=== PATIENT | female | born 1965 | race Caucasian/White ===

== ENCOUNTER 2017-11-17 12:44 | Inpatient (IN) | payer MEDICARE ==
[~2017-11-17] VITALS: Ht 162.6 cm; Wt 92.5 kg
[2017-11-17] MEDS ORDERED: RT-ALBUTEROL/IPRATROPIUM 3 ML (DUONEB) VIAL INH ONE (13:00)
[2017-11-17 13:18] LABS: ABG BASE EXCESS -0.4 MMOL/L (-2.5-2.5); ABG OXYGEN SATURATION 93 % (94-100); ABG PCO2 39 MMHG (35-45); ABG PO2 69 MMHG (79-93)
[2017-11-17 13:20] LABS: ALLENS TEST YES-POS; INSPIRED O2 3L; PATIENT TEMP 98.4; VENTILATOR NO
--- NOTE | 2017-11-17 13:29 | ED Respiratory ---
General Chief Complaint: Respiratory Problems Stated Complaint: SOB Nursing Triage Note: PT REPORTS HAVING SOA STARTING A FEW DAYS AGO; WENT TO SEE DR MO AND SHE TOLD HER TO GO STRAIGHT TO THE HOSPITAL. PT REPORTS HAVING LE SWELLING ALSO Source: patient Exam Limitations: no limitations History of Present Illness Date Seen by Provider: Nov 17, 2017 Time Seen by Provider: 13:26 Initial Comments to ER by private vehicle from [facility]. She was seen by Dr. Rita Mo today in the clinic with shortness of breath. Decided that she had COPD exacerbation and needed admitted. She was referred to the emergency room. She received 1 DuoNeb treatment at the clinic as well as 125 mg of Solu- Medrol at the clinic. She's also had some swelling to both lower extremities but mostly the left. She has a history DVT in the right lower extremity. She is not on anticoagulation. She is a former smoker but quit 4 years ago.she also reports chest tightness. Timing/Duration: constant Severity: moderate Associated Symptoms: cough; No fever/chills; shortness of breath Allergies and Home Medications Allergies Coded Allergies: No Known Drug Allergies (Unverified , 11/17/17) Patient Home Medication List Home Medication List Reviewed: Yes Review of Systems Constitutional: see HPI; No chills, No fever EENTM: see HPI Respiratory: no symptoms reported Cardiovascular: no symptoms reported Genitourinary: no symptoms reported Musculoskeletal: no symptoms reported Skin: no symptoms reported Psychiatric/Neurological: No Symptoms Reported Hematologic/Lymphatic: No Symptoms Reported Immunological/Allergic: no symptoms reported Past Esxvoka-Rjfzvq-Hvptvc Hx Patient Social History Alcohol Use: Denies Use Recreational Drug Use: No Smoking Status: Former Smoker Type Used: Cigarettes Former Smoker, Quit: Feb 04, 2014 Recent Foreign Travel: No Contact w/Someone Who Travel: No Recent Infectious Disease Expo: No Recent Hopitalizations: No Immunizations Up To Date Date of Pneumonia Vaccine: Dec 07, 2016 Seasonal Allergies Seasonal Allergies: Yes Past Medical History Surgeries: Yes (R HIP REPLACEMENT, R KNEE SCOPE) Orthopedic, Tubal Ligation Respiratory: Yes Pneumonia, COPD Currently Using CPAP: No Currently Using BIPAP: No Cardiac: Yes Deep Vein Thrombosis, Hypertension Neurological: Yes (HX CLUSTER HEADACHES) : No Genitourinary: No Gastrointestinal: Yes Gastroesophageal Reflux Musculoskeletal: Yes Degenerate Disk Disease, Arthritis, Chronic Back Pain Endocrine: Yes Hypothyroidsim HEENT: No Cancer: Yes Cervical What Type of Treatment Did You: Radiation Psychosocial: Yes Depression Integumentary: No Blood Disorders: No Physical Exam Vital Signs - First Documented 11/17/17 11/17/17 13:01 13:08 Temp 98.4 Pulse 88 Resp 24 B/P (MAP) 198/106 (136) Pulse Ox 92 O2 Delivery Nasal Cannula O2 Flow Rate 3.00 Capillary Refill : Less Than 3 Seconds Height: 5'4.00" Weight: 200lbs. oz. [id number]; BMI Method:Stated General Appearance: WD/WN, mild distress, other (O2 84% on room air) Eyes: Bilateral Eye Normal Inspection, Bilateral Eye PERRL, Bilateral Eye EOMI HEENT: PERRL/EOMI, normal ENT inspection Neck: non-tender, full range of motion Respiratory: normal breath sounds, no respiratory distress, no accessory muscle use, other (good air movement, no wheezing) Gastrointestinal: normal bowel sounds, non tender, soft Extremities: other (2+ pitting edema BLE) Neurologic/Psychiatric: alert, normal mood/affect, oriented x 3 Skin: normal color, warm/dry Focused Exam Lactate Level 11/17/17 13:27: Lactic Acid Level 1.02 Lactic Acid Level Laboratory Tests Test 11/17/17 13:27 Lactic Acid Level 1.02 MMOL/L (0.50-2.00) Progress/Results/Core Measures Suspected Sepsis Recent Fever Within 48 Hours: No Infection Criteria Present: None New/Unexplained Altered Menta: No Sepsis Screen: No Definite Risk SIRS Temperature:98.4 Pulse: 88 Respiratory Rate: 24 Laboratory Tests 11/17/17 13:27: White Blood Count 10.0 Blood Pressure 198 /106 Mean: 136 11/17/17 13:27: Lactic Acid Level 1.02 Laboratory Tests 11/17/17 13:27: Creatinine 1.81H, Platelet Count 252, Total Bilirubin 0.4 Results/Orders Lab Results Laboratory Tests Test 11/17/17 13:11 11/17/17 13:27 Range/Units Blood Gas Puncture Site RT RAD Blood Gas Patient Temperature 98.4 Arterial Blood pH 7.40 7.37-7.43 Arterial Blood Partial Pressure CO2 39 35-45 MMHG Arterial Blood Partial Pressure O2 69 L 79-93 MMHG Arterial Blood HCO3 24 23-27 MMOL/L Arterial Blood Total CO2 25.0 21.0-31.0 MMOL/L Arterial Blood Oxygen Saturation 93 L 94-100 % Arterial Blood Base Excess -0.4 -2.5-2.5 MMOL/L Jerod Test YES-POS Blood Gas Ventilator Setting NO Blood Gas Inspired Oxygen 3L White Blood Count 10.0 4.3-11.0 10^3/uL Red Blood Count 3.61 L 4.35-5.85 10^6/uL Hemoglobin 10.5 L 11.5-16.0 G/DL Hematocrit 33 L 35-52 % Mean Corpuscular Volume 90 80-99 FL Mean Corpuscular Hemoglobin 29 25-34 PG Mean Corpuscular Hemoglobin Concent 32 32-36 G/DL Red Cell Distribution Width 15.7 H 10.0-14.5 % Platelet Count 252 130-400 10^3/uL Mean Platelet Volume 9.6 7.4-10.4 FL Neutrophils (%) (Auto) 89 H 42-75 % Lymphocytes (%) (Auto) 7 L 12-44 % Monocytes (%) (Auto) 2 0-12 % Eosinophils (%) (Auto) 2 0-10 % Basophils (%) (Auto) 0 0-10 % Neutrophils # (Auto) 8.9 H 1.8-7.8 X 10^3 Lymphocytes # (Auto) 0.7 L 1.0-4.0 X 10^3 Monocytes # (Auto) 0.2 0.0-1.0 X 10^3 Eosinophils # (Auto) 0.2 0.0-0.3 10^3/uL Basophils # (Auto) 0.0 0.0-0.1 10^3/uL Neutrophils % (Manual) 87 % Lymphocytes % (Manual) 7 % Monocytes % (Manual) 1 % Eosinophils % (Manual) 3 % Band Neutrophils 2 % Blood Morphology Comment NORMAL Sodium Level 138 135-145 MMOL/L Potassium Level 5.0 3.6-5.0 MMOL/L Chloride Level 105 98-107 MMOL/L Carbon Dioxide Level 24 21-32 MMOL/L Anion Gap 9 5-14 MMOL/L Blood Urea Nitrogen 23 H 7-18 MG/DL Creatinine 1.81 H 0.60-1.30 MG/DL Estimat Glomerular Filtration Rate 29 BUN/Creatinine Ratio 13 Glucose Level 116 H 70-105 MG/DL Lactic Acid Level 1.02 0.50-2.00 MMOL/L Calcium Level 9.4 8.5-10.1 MG/DL Total Bilirubin 0.4 0.1-1.0 MG/DL Aspartate Amino Transf (AST/SGOT) 19 5-34 U/L Alanine Aminotransferase (ALT/SGPT) 17 0-55 U/L Alkaline Phosphatase 103 40-136 U/L Troponin I < 0.30 <0.30 NG/ML B-Type Natriuretic Peptide 199.0 H <100.0 PG/ML Total Protein 7.2 6.4-8.2 GM/DL Albumin 3.8 3.2-4.5 GM/DL My Orders Orders - KHURRAM BRAUN APRN Cbc And Manual Diff (11/17/17 12:53) Comprehensive Metabolic Panel (11/17/17 12:53) Troponin I (11/17/17 12:53) BNP (11/17/17 12:53) Chest 1 View, Ap/Pa Only (11/17/17 12:53) Oxygen-Administer 07,19 (11/17/17 12:53) Albuterol/Ipra Inhalation Soln (Duoneb I (11/17/17 13:00) Svn Small Volume Nebulizer (11/17/17 12:53) Blood Culture (11/17/17 12:53) Lactic Acid Analyzer (11/17/17 12:53) Arterial Blood Gas (11/17/17 13:08) Us Venous Lower Ext Arnaud (11/17/17 13:32) Ekg Tracing (11/17/17 13:33) Metoprolol Tartrate Injection (Lopressor (11/17/17 13:45) Medications Given in ED Current Medications Medications Dose Ordered Sig/Srini Route Start Time Stop Time Status Last Admin Dose Admin Albuterol/ Ipratropium 3 ml ONCE ONCE INH 11/17/17 13:00 11/17/17 13:01 DC 11/17/17 13:01 3 ML Metoprolol Tartrate 5 mg ONCE ONCE IV 11/17/17 13:45 11/17/17 13:46 DC 11/17/17 13:56 5 MG Vital Signs/I&O 11/17/17 11/17/17 13:01 13:08 Temp 98.4 Pulse 88 Resp 24 B/P (MAP) 198/106 (136) Pulse Ox 92 90 O2 Delivery Nasal Cannula Nasal Cannula O2 Flow Rate 3.00 Capillary Refill : Less Than 3 Seconds Blood Pressure Mean: 136 Departure Communication (Admissions) Time/Spoke to Admitting Phy: 14:[address] [place]. We will admit, Solu-Medrol and Zithromax. Ultrasound was negative for DVT of either lower extremity according to management tech. Impression Primary Impression: Hypoxia Additional Impression: COPD exacerbation Disposition: ADMITTED INPATIENT Condition: Stable Admissions Decision to Admit Reason: Admit from ER (General) Decision to Admit/Date: Nov 17, 2017 Time/Decision to Admit Time: 14:32 KHURRAM BRAUN APRN Nov 17, 2017 13:28
[2017-11-17 13:41] LABS: BASOPHILS % (AUTO) 0 % (0-10); EOSINOPHILS # (AUTO) 0.2 10^3/uL (0.0-0.3); EOSINOPHILS % (AUTO) 2 % (0-10); HEMATOCRIT 33 % (35-52); HEMOGLOBIN 10.5 G/DL (11.5-16.0); LYMPHOCYTES # (AUTO) 0.7 X 10^3 (1.0-4.0); LYMPHOCYTES % (AUTO) 7 % (12-44); MEAN CORPUSCULAR HEMOGLOBIN 29 PG (25-34); MEAN CORPUSCULAR HGB CONC 32 G/DL (32-36); MEAN CORPUSCULAR VOLUME 90 FL (80-99); MEAN PLATELET VOLUME 9.6 FL (7.4-10.4); MONOCYTES # (AUTO) 0.2 X 10^3 (0.0-1.0); MONOCYTES % (AUTO) 2 % (0-12); NEUTROPHILS # (AUTO) 8.9 X 10^3 (1.8-7.8); NEUTROPHILS % (AUTO) 89 % (42-75); PLATELET COUNT 252 10^3/uL (130-400); RED BLOOD COUNT 3.61 10^6/uL (4.35-5.85); RED CELL DISTRIBUTION WIDTH 15.7 % (10.0-14.5)
[2017-11-17] MEDS ORDERED: meTOprolol 5 MG/5 ML (LOPRESSOR) VIAL IV ONE (13:45)
[2017-11-17 13:59] LABS: ALANINE AMINOTRANSFERASE 17 U/L (0-55); ALBUMIN 3.8 GM/DL (3.2-4.5); ALKALINE PHOSPHATASE 103 U/L (40-136); BILIRUBIN,TOTAL 0.4 MG/DL (0.1-1.0); BUN/CREATININE RATIO 13; CALCIUM 9.4 MG/DL (8.5-10.1); CARBON DIOXIDE 24 MMOL/L (21-32); CHLORIDE 105 MMOL/L (98-107); CREATININE SERUM 1.81 MG/DL (0.60-1.30); GFR ESTIMATED 29; GLUCOSE 116 MG/DL (70-105); SODIUM 138 MMOL/L (135-145); TOTAL PROTEIN 7.2 GM/DL (6.4-8.2)
[2017-11-17 14:06] LABS: BAND NEUTROPHILS 2 %; EOSINOPHILS % (MANUAL) 3 %; LYMPHOCYTES % (MANUAL) 7 %; MONOCYTES % (MANUAL) 1 %; NEUTROPHILS % (MANUAL) 87 %
[2017-11-17 14:07] LABS: RBC MORPH NORMAL
--- NOTE | 2017-11-17 14:15 | Diagnostic Imaging Report ---
INDICATION: Shortness of breath. COMPARISON: None. FINDINGS: Single upright portable view of the chest is obtained. Heart size is mildly enlarged. There is moderate central venous congestion. There is mild increased interstitial markings throughout both lungs with some vague hazy alveolar opacities at the lung bases. This could be secondary to pneumonia although underlying failure/edema could also have this appearance. No large pleural effusions are suspected. IMPRESSION: Cardiomegaly with some central venous distention and interstitial changes, possibly related to underlying failure/edema. There are some vague alveolar opacities over the lung bases, which may represent edema or superimposed infiltrate. Short-term followup study is suggested. Dictated by: Dictated on workstation # [id number]
--- NOTE | 2017-11-17 15:08 | Diagnostic Imaging Report ---
INDICATION: Shortness breath and edema. PROCEDURE: US LE venous duplex, bilateral. TECHNIQUE: Multiple real-time grayscale images were obtained over the lower extremities in various projections, bilaterally. Additional duplex Doppler and color Doppler images were also obtained. There is no evidence of a right or left lower extremity DVT. Both lower extremities of the deep venous system show normal compressibility with normal response to augmentation and Valsalva. No fluid collection or mass is seen. IMPRESSION: No evidence of right or left lower extremity DVT. Dictated by: Dictated on workstation # [id number]
[2017-11-17] MEDS ORDERED: amLODIPine 5 MG (NORVASC) TAB PO ONE (15:45)
[2017-11-17] MEDS ORDERED: RANI300T4 PO (16:01)
[2017-11-17] MEDS ORDERED: CELE-63 PO (16:01)
[2017-11-17] MEDS ORDERED: MORP1CAP15 PO (16:01)
[2017-11-17] MEDS ORDERED: CARV25TA PO (16:01)
[2017-11-17] MEDS ORDERED: MORP1CAP16 PO (16:01)
[2017-11-17] MEDS ORDERED: ALBU18HF2 INH (16:01)
[2017-11-17] MEDS ORDERED: LEVO100T7 PO (16:01)
[2017-11-17] MEDS ORDERED: GABA-488 PO ×2 (16:01→16:31)
[2017-11-17] MEDS ORDERED: LOSA100T3 PO (16:01)
[2017-11-17] MEDS ORDERED: UMEC1BLS INH (16:01)
[2017-11-17] MEDS ORDERED: ARIP5TAB20 PO (16:01)
[2017-11-17 16:19] VITALS: BP 167/81
[2017-11-17] MEDS ORDERED: IBUP-30 PO (16:31)
[2017-11-17] MEDS ORDERED: MULT-192 PO (16:31)
[2017-11-17] MEDS ORDERED: AZITHROMYCIN 250 MG TAB (ZITHROMAX) PO NR (16:37)
[2017-11-17 17:53] VITALS: BP 198/106
[2017-11-17] MEDS: NS IV 1000 ML 1,000 ML IV SCH (17:56)
[2017-11-17] MEDS: methylPREDNISolone 125 MG (Solu-MEDROL) VIAL IVP SCH (17:56)
[2017-11-17] MEDS ORDERED: NALTREXONE PO SCH (18:30)
[2017-11-17] MEDS ORDERED: MORPHINE SULFATE PO SCH (18:30)
[2017-11-17] MEDS ORDERED: [UNRECOGNIZED DRUG - OTHER] PO SCH (18:30)
[2017-11-17] MEDS ORDERED: RT-ALBUTEROL/IPRATROPIUM 3 ML (DUONEB) VIAL ONE (19:29)
[2017-11-17] MEDS ORDERED: RT-ALBUTEROL/IPRATROPIUM 3 ML (DUONEB) VIAL INH PRN (19:45)
[2017-11-17 19:58] VITALS: BP 161/79
[2017-11-17] MEDS ORDERED: morphine ER 30 MG (MS CONTIN) TAB PO ONE (20:05)
[2017-11-17] MEDS ORDERED: GABAPENTIN 300 MG (NEURONTIN) CAP ONE (20:07)
[2017-11-17] MEDS: morphine ER 30 MG (MS CONTIN) TAB PO SCH (20:10)
[2017-11-17] MEDS: GABAPENTIN 300 MG (NEURONTIN) CAP PO SCH (20:10)
[2017-11-17] MEDS: CARVEDILOL 12.5 MG (COREG) TABLET PO SCH (21:03)
[2017-11-17] MEDS: FAMOTIDINE 20 MG (PEPCID) TABLET PO SCH (21:03)
[2017-11-17] MEDS: ACETAMINOPHEN 500 MG TAB (TYLENOL) PO PRN (22:28)
[2017-11-17] MEDS: RT-ALBUTEROL/IPRATROPIUM 3 ML (DUONEB) VIAL INH SCH (23:00)
[2017-11-18] MEDS: methylPREDNISolone 125 MG (Solu-MEDROL) VIAL IVP SCH ×3 (00:12→12:43)
[2017-11-18 00:26] VITALS: BP 114/67
[2017-11-18] MEDS: RT-ALBUTEROL/IPRATROPIUM 3 ML (DUONEB) VIAL INH SCH ×6 (02:40→21:35)
[2017-11-18 04:24] VITALS: BP 128/68
[2017-11-18] MEDS: NS IV 1000 ML 1,000 ML IV SCH ×2 (05:11→14:06)
[2017-11-18 08:30] VITALS: BP 147/79
[2017-11-18] MEDS: AZITHROMYCIN 250 MG TAB (ZITHROMAX) PO SCH (08:36)
[2017-11-18] MEDS: LOSARTAN 100 MG (COZAAR) TABLET PO SCH (08:36)
[2017-11-18] MEDS: FAMOTIDINE 20 MG (PEPCID) TABLET PO SCH ×2 (08:36→20:30)
[2017-11-18] MEDS: LEVOTHYROXINE 100 MCG (LEVOTHROID) TAB PO SCH (08:36)
[2017-11-18] MEDS: CELECOXIB 100 MG (CeleBREX) CAP PO SCH (08:37)
[2017-11-18] MEDS: ARIPIPRAZOLE 10 MG (ABILIFY) TAB PO SCH (08:37)
[2017-11-18] MEDS: CARVEDILOL 12.5 MG (COREG) TABLET PO SCH ×2 (08:37→20:30)
[2017-11-18] MEDS: morphine ER 30 MG (MS CONTIN) TAB PO SCH ×2 (08:37→20:31)
[2017-11-18 10:17] LABS: HEMOGLOBIN 9.8 G/DL (11.5-16.0); MEAN PLATELET VOLUME 9.7 FL (7.4-10.4); RED BLOOD COUNT 3.37 10^6/uL (4.35-5.85); RED CELL DISTRIBUTION WIDTH 15.7 % (10.0-14.5); WHITE BLOOD COUNT 18.4 10^3/uL (4.3-11.0)
[2017-11-18 10:37] LABS: CREATININE SERUM 1.52 MG/DL (0.60-1.30); POTASSIUM 4.5 MMOL/L (3.6-5.0)
[2017-11-18 11:49] VITALS: BP 131/70
--- NOTE | 2017-11-18 12:28 | History & Physicial (CHS) ---
EVANGELINA ADAMSON MEDICAL STUDENT 11/18/17 12:27pm: HPI History of Present Illness: 52 year old female with Hx of COPD who is not on home O2, Fibromyalgia, degenerative disk disease, HTN, Hypothyroidism here for SOB. Pt states she has had SOB x 5 days that is worse with walking and laying down and is better with sitting up. Pt states she has been using her nebulizer a couple times a day for the last week which has not been helping too much. Pt admits Chest tightness, DAVALOS and states she feels dehydrated. Pt denies abd pain, N/V/D, constipation, dysuria, fever, cough. Source: patient Time Seen by Provider: 07:13 Attending Physician Indio Yu MD PCP Elias Mo MD Consult Date of Admission Nov 17, 2017 at 15:07 Home Medications Home Medications Reviewed patient Home Medication Reconciliation performed by pharmacy medication reconciliations engineering technician and/or nursing. Patients Allergies have been reviewed. Allergies Coded Allergies: Penicillins (Unverified Allergy, Severe, 11/17/17) levofloxacin (Unverified Allergy, Unknown, 11/17/17) nalbuphine (Unverified Allergy, Unknown, 11/17/17) pregabalin (Unverified Allergy, Unknown, 11/17/17) MPU-Phhcpw-Mulzbr Hx Patient Social History Alcohol Use: Denies Use Recreational Drug Use: No Smoking Status: Former Smoker Type Used: Cigarettes Recent Foreign Travel: No Contact w/other who traveled: No Recent Hopitalizations: No Recent Infectious Disease Expo: No Physical Abuse Screen: No Sexual Abuse: No Immunizations Up To Date Date of Pneumonia Vaccine: Dec 07, 2016 Past Medical History COPD Fibromyalgia Degenerative disk disease HTN Hyptothyroid Surgical: Hip replacement Tubal Ligation Knee scope Family Medical History Family History: AIDS G8 BROTHER Alcoholism 19 FATHER Arthritis 19 MOTHER Cardiovascular disease 19 MOTHER Cataracts 19 MOTHER Diabetes mellitus 19 MOTHER Hypercholesterolemia 19 MOTHER Hypertension 19 MOTHER G8 BROTHER Neoplasm MATERNAL GRANDMOTHER (OVARIAN CANCER) MATERNAL AUNT (OVARIAN CANCER) Osteoporosis 19 MOTHER Review of Systems ([facility]) Constitutional: No fever Respiratory: see HPI, short of breath Cardiovascular: see HPI Gastrointestinal: No abdominal pain, No constipation, No diarrhea, No nausea, No vomiting Genitourinary: No dysuria Reviewed Test Results Reviewed Test Results Lab Laboratory Tests Test 11/17/17 13:11 11/17/17 13:27 11/18/17 10:04 Range/Units Blood Gas Puncture Site RT RAD Blood Gas Patient Temperature 98.4 Arterial Blood pH 7.40 7.37-7.43 Arterial Blood Partial Pressure CO2 39 35-45 MMHG Arterial Blood Partial Pressure O2 69 L 79-93 MMHG Arterial Blood HCO3 24 23-27 MMOL/L Arterial Blood Total CO2 25.0 21.0-31.0 MMOL/L Arterial Blood Oxygen Saturation 93 L 94-100 % Arterial Blood Base Excess -0.4 -2.5-2.5 MMOL/L Jerod Test YES-POS Blood Gas Ventilator Setting NO Blood Gas Inspired Oxygen 3L White Blood Count 10.0 18.4 H 4.3-11.0 10^3/uL Red Blood Count 3.61 L 3.37 L 4.35-5.85 10^6/uL Hemoglobin 10.5 L 9.8 L 11.5-16.0 G/DL Hematocrit 33 L 31 L 35-52 % Mean Corpuscular Volume 90 91 80-99 FL Mean Corpuscular Hemoglobin 29 29 25-34 PG Mean Corpuscular Hemoglobin Concent 32 32 32-36 G/DL Red Cell Distribution Width 15.7 H 15.7 H 10.0-14.5 % Platelet Count 252 252 130-400 10^3/uL Mean Platelet Volume 9.6 9.7 7.4-10.4 FL Neutrophils (%) (Auto) 89 H 42-75 % Lymphocytes (%) (Auto) 7 L 12-44 % Monocytes (%) (Auto) 2 0-12 % Eosinophils (%) (Auto) 2 0-10 % Basophils (%) (Auto) 0 0-10 % Neutrophils # (Auto) 8.9 H 1.8-7.8 X 10^3 Lymphocytes # (Auto) 0.7 L 1.0-4.0 X 10^3 Monocytes # (Auto) 0.2 0.0-1.0 X 10^3 Eosinophils # (Auto) 0.2 0.0-0.3 10^3/uL Basophils # (Auto) 0.0 0.0-0.1 10^3/uL Neutrophils % (Manual) 87 % Lymphocytes % (Manual) 7 % Monocytes % (Manual) 1 % Eosinophils % (Manual) 3 % Band Neutrophils 2 % Blood Morphology Comment NORMAL Sodium Level 138 135 135-145 MMOL/L Potassium Level 5.0 4.5 3.6-5.0 MMOL/L Chloride Level 105 106 98-107 MMOL/L Carbon Dioxide Level 24 17 L 21-32 MMOL/L Anion Gap 9 12 5-14 MMOL/L Blood Urea Nitrogen 23 H 26 H 7-18 MG/DL Creatinine 1.81 H 1.52 H 0.60-1.30 MG/DL Estimat Glomerular Filtration Rate 29 36 BUN/Creatinine Ratio 13 17 Glucose Level 116 H 259 H 70-105 MG/DL Lactic Acid Level 1.02 0.50-2.00 MMOL/L Calcium Level 9.4 9.0 8.5-10.1 MG/DL Total Bilirubin 0.4 0.1-1.0 MG/DL Aspartate Amino Transf (AST/SGOT) 19 5-34 U/L Alanine Aminotransferase (ALT/SGPT) 17 0-55 U/L Alkaline Phosphatase 103 40-136 U/L Troponin I < 0.30 <0.30 NG/ML B-Type Natriuretic Peptide 199.0 H <100.0 PG/ML Total Protein 7.2 6.4-8.2 GM/DL Albumin 3.8 3.2-4.5 GM/DL Radiology 11/17/17 US LE: IMPRESSION: No evidence of right or left lower extremity DVT. 11/17/17 CXR: IMPRESSION: Cardiomegaly with some central venous distention and interstitial changes, possibly related to underlying failure/edema. There are some vague alveolar opacities over the lung bases, which may represent edema or superimposed infiltrate. Short-term followup study is suggested. Physical Exam-([facility]) Physical Exam Vital Signs VS - Last 72 Hours, by Label 11/17/17 11/17/17 11/17/17 11/17/17 13:01 13:08 16:15 16:19 Temp 98.4 97.3 Pulse 88 77 80 Resp 24 20 20 B/P (MAP) 198/106 (136) 159/79 167/81 (109) Pulse Ox 92 90 91 98 O2 Delivery Nasal Cannula Nasal Cannula Nasal Cannula Nasal Cannula O2 Flow Rate 3.00 2.00 2.00 11/17/17 11/17/17 11/17/17 11/17/17 17:02 17:53 19:52 19:58 Temp 98.3 Pulse 86 89 Resp 20 B/P (MAP) 161/79 (106) Pulse Ox 86 98 99 O2 Delivery Nasal Cannula Nasal Cannula Nasal Cannula O2 Flow Rate 2.00 3.00 3.00 11/17/17 11/17/17 11/18/17 11/18/17 20:55 23:01 00:26 02:46 Temp 97.7 Pulse 82 Resp 19 B/P (MAP) 114/67 (83) Pulse Ox 98 95 98 O2 Delivery Nasal Cannula Nasal Cannula Nasal Cannula Nasal Cannula O2 Flow Rate 2.00 3.00 3.00 3.00 11/18/17 11/18/17 11/18/17 11/18/17 04:24 06:50 08:00 08:30 Temp 97.8 98.6 Pulse 88 94 Resp 18 20 B/P (MAP) 128/68 (88) 147/79 (101) Pulse Ox 95 96 95 95 O2 Delivery Nasal Cannula Nasal Cannula Nasal Cannula Nasal Cannula O2 Flow Rate 3.00 3.00 1.00 1.00 11/18/17 11/18/17 11/18/17 10:05 11:11 11:49 Temp 99.6 Pulse 96 Resp 22 B/P (MAP) 131/70 (90) Pulse Ox 86 92 86 O2 Delivery Nasal Cannula Nasal Cannula O2 Flow Rate 3.00 1.00 Capillary Refill : Less Than 3 Seconds General Appearance: mild distress Eyes: Bilateral Eye EOMI Neck: non-tender Respiratory: lungs clear, no respiratory distress Cardiovascular: normal peripheral pulses, regular rate, rhythm, other (1+ pedal edema bilateral LE) Peripheral Pulses: 2+ Radial Pulses (R), 2+ Radial Pulses (L) Gastrointestinal: normal bowel sounds, non tender, soft Extremities: normal range of motion Neurologic/Psychiatric: alert, normal mood/affect Skin: normal color Assessment/Plan Assessment/Plan Admission Status: Inpatient Order (span 2 midnights) Reason for Inpatient Admission: COPD Assessment & Plan COPD - Pt is on IV steroids. Will switch pt to PO prednisone. Will continue duoneb. Pt desaturated when ambulated without O2. Will follolow up labs and will monitor increased creat. Clinical Quality Measures DVT/VTE Risk/Contraindication: Risk Factor Score Per Nursin RFS Level Per Nursing on Admit: 4+=Very High Copy Copies To 1: ELIAS MO MD, BETHANY N MD 11/18/17 3:20pm: HPI History of Present Illness: Date seen by provider: Nov 18, 2017 Time Seen by Provider: 11:47 Home Medications Allergies Coded Allergies: Penicillins (Unverified Allergy, Severe, 11/17/17) levofloxacin (Unverified Allergy, Unknown, 11/17/17) nalbuphine (Unverified Allergy, Unknown, 11/17/17) pregabalin (Unverified Allergy, Unknown, 11/17/17) PUF-Aheoxc-Gpxhba Hx Family Medical History Family History: AIDS G8 BROTHER Alcoholism 19 FATHER Arthritis 19 MOTHER Cardiovascular disease 19 MOTHER Cataracts 19 MOTHER Diabetes mellitus 19 MOTHER Hypercholesterolemia 19 MOTHER Hypertension 19 MOTHER G8 BROTHER Neoplasm MATERNAL GRANDMOTHER (OVARIAN CANCER) MATERNAL AUNT (OVARIAN CANCER) Osteoporosis 19 MOTHER Physical Exam-([facility]) Physical Exam General Appearance: WD/WN, no apparent distress Eyes: Bilateral Eye EOMI Respiratory: wheezing (faint end expiratory at bases, ronchi at bases) Cardiovascular: regular rate, rhythm, no murmur Gastrointestinal: normal bowel sounds, non tender, soft Neurologic/Psychiatric: alert, normal mood/affect Skin: normal color, warm/dry Assessment/Plan Assessment/Plan Admission Status: Inpatient Order (span 2 midnights) Reason for Inpatient Admission: COPD exacerbation with acute renal insufficiency Assessment & Plan COPD exacerbation- new supplemental oxygen requirement, improved overnight, but still requiring supplemental O2. Change to prednisone, continue nebulizers Acute renal insufficiency- uncertain etiology, improving, continue IVF Chronic pain- on very high dose morphine at home, tapering down per Dr. Mo at [facility]. She has her next refill ready at [facility], but it will not be released until hospital nurse calls pharmacy to confirm patient is being discharged. Embeda not available inpatient, use MS contin. Next refill outpatient is once daily 80 mg and once daily 60 mg, will decrease MS contin to 90 and 60 mg. DVT ppx- SCDs, enoxaparin Supervisory-Addendum Brief Supervisory Addendum Patient seen and examined by me with MS3 Pedro Adamson, agree with documentation unless otherwise noted. See my assessment and plan. EVANGELINA ADAMSON MEDICAL STUDENT Nov 18, 2017 12:27 pm INDIO YU MD Nov 18, 2017 3:20 pm
[2017-11-18] MEDS: GABAPENTIN 300 MG (NEURONTIN) CAP PO SCH ×2 (12:43→20:31)
[2017-11-18] MEDS: ACETAMINOPHEN 500 MG TAB (TYLENOL) PO PRN (14:06)
[2017-11-18] MEDS: predniSONE 10 MG TAB PO SCH (15:59)
[2017-11-18] MEDS ORDERED: NALTREXONE PO SCH (16:00)
[2017-11-18] MEDS ORDERED: [UNRECOGNIZED DRUG - OTHER] PO SCH (16:00)
[2017-11-18] MEDS ORDERED: MORPHINE SULFATE PO SCH (16:00)
[2017-11-18 16:05] VITALS: BP 136/71
[2017-11-18 20:05] VITALS: BP 123/68
[2017-11-19 00:32] VITALS: BP 134/72
[2017-11-19] MEDS: RT-ALBUTEROL/IPRATROPIUM 3 ML (DUONEB) VIAL INH SCH ×6 (01:14→21:42)
[2017-11-19] MEDS: NS IV 1000 ML 1,000 ML IV SCH ×2 (01:16→08:54)
[2017-11-19 04:23] VITALS: BP_SYST 126; BP_SYST 135; BP_DIAS 66; BP_DIAS 82
[2017-11-19 06:43] LABS: HEMOGLOBIN 9.7 G/DL (11.5-16.0); MEAN PLATELET VOLUME 9.9 FL (7.4-10.4); RED BLOOD COUNT 3.33 10^6/uL (4.35-5.85); WHITE BLOOD COUNT 18.1 10^3/uL (4.3-11.0)
[2017-11-19 07:07] LABS: CALCIUM 8.7 MG/DL (8.5-10.1); CREATININE SERUM 1.45 MG/DL (0.60-1.30); POTASSIUM 4.5 MMOL/L (3.6-5.0)
[2017-11-19 08:30] VITALS: BP 168/81
[2017-11-19] MEDS: LOSARTAN 100 MG (COZAAR) TABLET PO SCH (08:52)
[2017-11-19] MEDS: FAMOTIDINE 20 MG (PEPCID) TABLET PO SCH ×2 (08:52→20:33)
[2017-11-19] MEDS: CARVEDILOL 12.5 MG (COREG) TABLET PO SCH ×2 (08:53→20:32)
[2017-11-19] MEDS: AZITHROMYCIN 250 MG TAB (ZITHROMAX) PO SCH (08:53)
[2017-11-19] MEDS: morphine ER 30 MG (MS CONTIN) TAB PO SCH ×2 (08:53→20:33)
[2017-11-19] MEDS: CELECOXIB 100 MG (CeleBREX) CAP PO SCH (08:53)
[2017-11-19] MEDS: ARIPIPRAZOLE 10 MG (ABILIFY) TAB PO SCH (08:53)
[2017-11-19] MEDS: LEVOTHYROXINE 100 MCG (LEVOTHROID) TAB PO SCH (08:53)
[2017-11-19] MEDS ORDERED: AZIT250T12 PO (09:22)
[2017-11-19] MEDS ORDERED: PRD20T PO (09:22)
--- NOTE | 2017-11-19 09:24 | Discharge Inst-Simple/Standard ---
Discharge Inst-Standard Discharge Medications New, Converted or Re-Newed RX: Transmitted to Pharmacy Patient Instructions/Follow Up Plan of Care/Instructions/FU: follow-up with [facility] . Taper the steroid prednisone as instructed: 3 daily for 3 days, 2 daily for 3 days, then 1 daily for 3 days then off. Home oxygen to be maintained at 3 L continuous Activity as Tolerated: Yes Discharge Diet: Low Sodium Diet Return to The Hospital For: Worsening shortness of breath or fever HAIM GARCIA MD Nov 19, 2017 09:24
--- NOTE | 2017-11-19 09:38 | Discharge Summary ---
Diagnosis/Chief Complaint Date of Admission Nov 17, 2017 at 15:07 Date of Discharge November 19, 2017 Admission Diagnosis Admission Diagnosis 1. COPD exacerbation 2. Hypoxemia 3. Acute renal insufficiency 4. Chronic pain 5. Hypertension Discharge Diagnosis 1. COPD exacerbation 2. Hypoxemia 3. Acute renal insufficiency 4. Chronic pain 5. Hypertension Chief Complaint/HPI Chief Complaint/HPI 52 year old female with Hx of COPD who is not on home O2, Fibromyalgia, degenerative disk disease, HTN, Hypothyroidism here for SOB. Pt states she has had SOB x 5 days that is worse with walking and laying down and is better with sitting up. Pt states she has been using her nebulizer a couple times a day for the last week which has not been helping too much. Pt admits Chest tightness, DAVALOS and states she feels dehydrated. Pt denies abd pain, N/V/D, constipation, dysuria, fever, cough. Discharge Summary-Simple/Stand Consultations Discharge Physical Examination Allergies: Coded Allergies: Penicillins (Unverified Allergy, Severe, 11/17/17) levofloxacin (Unverified Allergy, Unknown, 11/17/17) nalbuphine (Unverified Allergy, Unknown, 11/17/17) pregabalin (Unverified Allergy, Unknown, 11/17/17) Vitals & I&Os Vital Sign - Last 12Hours Date Time Temp Pulse Resp B/P (MAP) Pulse Ox O2 Delivery O2 Flow Rate FiO2 11/19/17 08:30 99.1 106 26 168/81 (110) 92 Nasal Cannula 3.00 Intake and Output 11/19/17 00:00 Intake Total 2250 ml Output Total 3800 ml Balance -1550 ml General Appearance: Mild Distress (But this does improve with wearing 3 L nasal cannula continuous oxygen) HEENT: Mucous Memb Moist/[place] Respiratory: Clear to Auscultation Cardiovascular: Regular Rate Abdominal: Soft Extremities: No Clubbing, No Cyanosis Skin: No Rashes Hospital Course Following admission on November 17 patient underwent COPD treatment with Solu- Medrol. She was tapered down to ultimately prednisone and she was taking 60 mg daily on November 18, 2017. She was also supplied with nasal cannula oxygen. She required the nasal cannula oxygen during the course of her stay and when the oxygen was removed she immediately dropped her saturations to 86 percentile and she became very dyspneic. Also during the course of her stay she received Zithromax for possible upper respiratory infection. She did not have a fever on dismissal. Home oxygen therapy was arranged for her. She also has chronic pain and she is on very high-dose morphine at home. She does see Dr. Romo at [facility] and this is being closely monitor. Upon release today patient does have prescription waiting for her at [facility]. All questions answered today. Radiology Reviewed 11/17/17 US LE: IMPRESSION: No evidence of right or left lower extremity DVT. 11/17/17 CXR: IMPRESSION: Cardiomegaly with some central venous distention and interstitial changes, possibly related to underlying failure/edema. There are some vague alveolar opacities over the lung bases, which may represent edema or superimposed infiltrate. Short-term followup study is suggested. Discharge Instructions to patient/family Please see electronic discharge instructions given to patient. Discharge Medications Reviewed and agree with Discharge Medication list on patient's Discharge Instruction sheet Clinical Quality Measures DVT/VTE Risk/Contraindication: Risk Factor Score Per Nursin RFS Level Per Nursing on Admit: 4+=Very High HAIM GARCIA MD Nov 19, 2017 09:38
[2017-11-19 11:32] VITALS: BP 159/84
[2017-11-19] MEDS ORDERED: LORazepam 1 MG (ATIVAN) TAB ONE (11:56)
[2017-11-19] MEDS ORDERED: FUROSEMIDE 20 MG (LASIX) TAB ONE (12:12)
[2017-11-19] MEDS ORDERED: FUROSEMIDE 20 MG (LASIX) TAB PO ONE (12:30)
[2017-11-19] MEDS ORDERED: LORazepam 1 MG (ATIVAN) TAB PO ONE (12:30)
[2017-11-19] MEDS: GABAPENTIN 300 MG (NEURONTIN) CAP PO SCH ×2 (12:41→20:33)
[2017-11-19] MEDS ORDERED: RT-ALBUTEROL SULF 2.5 MG/3 ML PRE-MIX VIAL ONE (12:57)
[2017-11-19] MEDS ORDERED: FUROSEMIDE 40 MG/4 ML INJ (LASIX) ONE (13:04)
[2017-11-19] MEDS ORDERED: FUROSEMIDE 40 MG/4 ML INJ (LASIX) IVP NR (13:20)
[2017-11-19 13:29] LABS: ABG OXYGEN SATURATION 93 % (94-100); ABG PCO2 39 MMHG (35-45); ABG PO2 67 MMHG (79-93); ABG TCO2 21.2 MMOL/L (21.0-31.0)
[2017-11-19 13:31] LABS: ABG PH 7.33 (7.37-7.43); ALLENS TEST YES-POS
[2017-11-19 13:32] LABS: INSPIRED O2 30%; PATIENT TEMP 97.9; VENTILATOR NO
[2017-11-19 16:00] VITALS: BP 147/78
[2017-11-19] MEDS: predniSONE 10 MG TAB PO SCH (17:01)
[2017-11-19 19:34] VITALS: BP 167/84
[2017-11-20] VITALS: BP 124/70
[2017-11-20] MEDS: RT-ALBUTEROL/IPRATROPIUM 3 ML (DUONEB) VIAL INH SCH ×2 (01:49→07:15)
[2017-11-20 04:00] VITALS: BP 123/68
[2017-11-20] MEDS ORDERED: FURO20TA4 PO (08:00)
[2017-11-20 08:30] VITALS: BP 138/96
[2017-11-20] MEDS: FAMOTIDINE 20 MG (PEPCID) TABLET PO SCH (09:14)
[2017-11-20] MEDS: LOSARTAN 100 MG (COZAAR) TABLET PO SCH (09:14)
[2017-11-20] MEDS: LEVOTHYROXINE 100 MCG (LEVOTHROID) TAB PO SCH (09:15)
[2017-11-20] MEDS: CARVEDILOL 12.5 MG (COREG) TABLET PO SCH (09:15)
[2017-11-20] MEDS: AZITHROMYCIN 250 MG TAB (ZITHROMAX) PO SCH (09:15)
[2017-11-20] MEDS: morphine ER 30 MG (MS CONTIN) TAB PO SCH (09:15)
[2017-11-20] MEDS: CELECOXIB 100 MG (CeleBREX) CAP PO SCH (09:16)
[2017-11-20] MEDS: ARIPIPRAZOLE 10 MG (ABILIFY) TAB PO SCH (09:19)
== END 2017-11-20 10:39 | disposition home or self-care (01) | DRG 192 ==
LOC: ER 12:46 → 4TH 15:07
PROVIDERS: ADMIT Family Medicine; ATTEND Family Medicine
DX: J44.1 Chronic obstructive pulmonary disease with (acute) exacerbation (principal); R09.02 Hypoxemia; N28.9 Disorder of kidney and ureter, unspecified; I10 Essential (primary) hypertension; R07.89 Other chest pain; M79.89 Other specified soft tissue disorders; J30.2 Other seasonal allergic rhinitis; G44.009 Cluster headache syndrome, unspecified, not intractable; K21.9 Gastro-esophageal reflux disease without esophagitis; M19.91 Primary osteoarthritis, unspecified site; M54.9 Dorsalgia, unspecified; E03.9 Hypothyroidism, unspecified; F32.9 Major depressive disorder, single episode, unspecified; M79.7 Fibromyalgia; G89.29 Other chronic pain; Z87.891 Personal history of nicotine dependence; Z86.718 Personal history of other venous thrombosis and embolism; Z85.41 Personal history of malignant neoplasm of cervix uteri; Z92.3 Personal history of irradiation; Z87.01 Personal history of pneumonia (recurrent); Z96.641 Presence of right artificial hip joint
CPT/HCPCS: 36415; 36600; 71045; 80048; 80053; 82805; 83605; 83880; 84484; 85007; 85027; 87040; 93005; 93970; 94640; 94660; 94760; 94761; 96374

== ENCOUNTER → 2017-12-19 | Outpatient (CLI) | payer MEDICARE ==
[~2017-12-19] MED LIST: ALBU18HF2 INH; ARIP5TAB20 PO; AZIT250T12 PO; CARV25TA PO; CELE-63 PO; FURO20TA4 PO; GABA-488 PO; IBUP-30 PO; LEVO100T7 PO; LOSA100T3 PO; MORP1CAP15 PO; MORP1CAP16 PO; MULT-192 PO; PRD20T PO; RANI300T4 PO; UMEC1BLS INH
== END ==
LOC: RAD 08:46
PROVIDERS: ATTEND Nurse Practitioner Primary Care
DX: Z12.31 Encounter for screening mammogram for malignant neoplasm of breast (principal)

== ENCOUNTER 2018-01-13 19:22 | Inpatient (IN) | payer MEDICARE ==
[~2018-01-13] VITALS: Ht 162.6 cm; Wt 98.7 kg
[~2018-01-13 19:22] MED LIST changes: +ACET-2267 PO; +ASPI-983 PO; +LIDO700A45 TD; +MORP1CAP12 PO; +OMG1KC PO; +ROSU5TAB12 PO; +TICA90TA PO
--- OUTSIDE RECORDS SUMMARY | 2018-01-13 19:26 | XMS REPORT ---
Author Author ELIAS MO Organization [facility] Address [address] [place] [address] Care Team Providers Care Medical Coding Instructor Name Role Phone ELIAS MO Unavailable PROBLEMS Type Condition ICD9-CM Code [id number] Code Onset Dates Condition Status SNOMED Code Problem Cannabis use disorder, mild, abuse F12.10 Active 27015468 Problem COPD exacerbation J44.1 Active 917263787 Problem Plantar fasciitis M72.2 Active 156592309 Problem Coronary artery disease involving [place] coronary artery of [place] heart without angina pectoris I25.10 Active 7490746630633 Problem Chronic bronchitis, unspecified chronic bronchitis type J42 Active 33126854 Problem Gastroesophageal reflux disease without esophagitis K21.9 Active 641165913 Problem Hypothyroidism, postop E89.0 Active 07313507 Problem Essential hypertension I10 Active 93595591 Problem Depressive disorder F32.9 Active 21368758 Problem Other chronic pain G89.29 Active 87226205 Problem Lumbago with sciatica, right side M54.41 Active 152851973 Problem Opioid use disorder F11.99 Active 93002564 Problem Stage 3 chronic kidney disease N18.3 Active 641218958 Problem Chronic pain syndrome G89.4 Active 314943482 ALLERGIES Substance Reaction Event Type Date Status Penicillin V Potassium anaphylaxis Drug Allergy Nov, Active Nubain Unknown Drug Allergy Nov, Active Lyrica rash and swelling Drug Allergy Nov, Active Levaquin Unknown Drug Allergy Nov, Active ENCOUNTERS Encounter Location Date Diagnosis [facility] [address] [facility] [id number] [address] Feb, [facility] [address] [facility] [id number], [place] [address] Jan, Chronic congestive heart failure, unspecified heart failure type I50.9 ; Essential hypertension I10 ; Weight loss counseling, encounter for Z71.3 and Coronary artery disease involving [place] coronary artery of [place] heart without angina pectoris I25.10 [facility] [address], [place] [address] Dec, Chronic pain syndrome G89.4 [facility] [id number] [place] [address] Dec, Acute respiratory failure with hypoxia J96.01 [facility] [id number] [place] [address] 49275- [address] Dec, [facility] [id number] [place] [address] 05020- 1619 Dec, Chronic pain syndrome G89.4 [facility] [id number] [place] [address] 50252- 6808 Dec, Stage 3 chronic kidney disease N18.3 and Essential hypertension I10 [place] [address] [place] [address]381- 0198 Dec, Well woman exam Z01.419 ; Screening for cervical cancer Z12.4 ; Screening for breast cancer Z12.31 and Stage 3 chronic kidney disease N18.3 [facility] [id number] [place] [address] 39712- 1799 Nov, [facility] [address] [place] [address] 87017- 6422 Nov, Chronic pain syndrome G89.4 [facility] [id number] [place] [address] 59895- 5603 Nov, Stage 3 chronic kidney disease N18.3 ; Chronic bronchitis, unspecified chronic bronchitis type J42 and Elevated brain natriuretic peptide ( BNP) level R79.89 [facility] [address] [place] [address] 75506- 3972 Nov, Chronic pain syndrome G89.4 [facility] [address] [place] [address] 11182- 7234 Nov, [facility] [address] [place] [address] 04429- 9148 Nov, Essential hypertension I10 ; Hypothyroidism, postop E89.0 ; COPD exacerbation J44.1 ; Opioid use disorder F11.99 and Chronic pain syndrome G89.4 [place] [address] [place] [address] 50426- 2768 Nov, Essential hypertension I10 [place] [address] [place] [address] 59073- 6002 Nov, Lumbago with sciatica, right side M54.41 ; Essential hypertension I10 ; Hypothyroidism, postop E89.0 ; Chronic bronchitis, unspecified chronic bronchitis type J42 ; Gastroesophageal reflux disease without esophagitis K21.9 ; Depressive disorder F32.9 and Plantar fasciitis of left foot M72.2 [place] [id number] [place] [address] 25320- 9686 Oct, [place] [address] [address] Oct, Chronic pain syndrome G89.4 ; Opioid use disorder F11.99 and Plantar fasciitis M72.2 [place] [address] [place] [address] 10503- 1082 Oct, [place] [address] [place] [address] 74501- 2443 Oct, [facility] [facility] [address] [place] [address] 86133- 9712 Oct, Opioid use disorder F11.99 ; Chronic pain syndrome G89.4 and Cannabis use disorder, mild, abuse F12.10 [place] [facility] [address] [place] [address] 64851- 7509 September, [place] [address] [address]- [address] September, Lumbago with sciatica, right side M54.41 ; Other chronic pain G89.29 and At risk for sleep apnea Z91.89 IMMUNIZATIONS Vaccine Route Administration Date Status SOLUMEDROL (UP TO 125 MG) IM Intramuscular November 17, 2017 Administered SOCIAL HISTORY Never Assessed REASON FOR VISIT Pain Management f/u - [place], [place], Edema, SOB PLAN OF CARE VITAL SIGNS Height 63.5 in 2017-11-17 Weight 205.3 lbs 2017-11-17 Temperature 98.4 degrees Fahrenheit 2017-11-17 Heart Rate 100 bpm 2017-11-17 Respiratory Rate 23 2017-11-17 Oximetry post neb treatment:90 % 2017-11-17 BMI 35.79 kg/m2 2017-11-17 Blood pressure systolic 150 mmHg 2017-11-17 Blood pressure diastolic 88 mmHg 2017-11-17 MEDICATIONS Medication Instructions Dosage Frequency Start Date End Date Duration Status Levothyroxine Sodium 100 MCG Orally Once a day 1 tablet on an empty stomach in the morning 24h Active Carvedilol 25 MG Orally twice daily 1 tablet 30 day Active Losartan Potassium 100 mg Orally Once a day 1 tablet 24h Nov, 30 day(s) Active Gabapentin 300 MG Orally Once a day 3 capsules before bedtime 24h Not-Taking Embeda 80-3.2 MG Orally 2 times a day 1 capsule 12h Oct, Nov, 14 days Active Ventolin HFA 108 (90 Base) MCG/ACT Inhalation every 6 hrs 2 puffs as needed 6h Active Celecoxib 200 MG Orally Once a day 1 capsule with food 24h 2 Dec, 2017 30 day Active Gabapentin 300 MG Orally twice a day 2 capsule in afternoon and 3 capsule at bedtime 12h Nov, 30 days Active Anoro Ellipta 62.5-25 MCG/INH Inhalation Once a day 1 puff 24h Active Ranitidine HCl 300 MG Orally twice a day 1 capsule 12h 30 day Active Abilify 5 MG Orally Once a day 1 tablet 24h 30 day Active RESULTS No Results PROCEDURES Procedure Date Ordered Result Body Site SOLUMEDROL (UP TO 125 MG) November 17, 2017 THER/PROPH/DIAG INJ, SC/IM November 17, 2017 INSTRUCTIONS MEDICATIONS ADMINISTERED No Known Medications MEDICAL (GENERAL) HISTORY Type Description Date Medical History Fibromyalgia Medical History Degenerative disc disease- lumbar spine- MRI L-spine mild- moderate chronic deg. spondylosis most prominent at L5-S1 Medical History Hypertension Medical History Right hip replacement 2016 Medical History cervical cancer- dx 2000 Medical History DVT right femoral vein 07/2016 Medical History COPD (PFTs WNL 11/2015), last CXR 5/1/18- basilar atelectasis vs scarring Medical History 2018 plantar fasciitis Surgical History Right hip replacement 2017 Surgical History Tubal ligation Surgical History Right knee surgery Surgical History Colonoscopy 2005, WNL Surgical History Hysterectomy and cisplatin implant for cervical cancer tx 2001 Hospitalization History post surgery Hospitalization History pneumonia/bronchitis multiple stays Hospitalization History Difficulty breathing - 4 night stay [facility] 11/2017
--- OUTSIDE RECORDS SUMMARY | 2018-01-13 19:26 | XMS REPORT ---
Author Author ELIAS MO Organization [facility] Address [address] [place] [address] Care Team Providers Care Metal Fabricator Name Role Phone CHELYJOYIE Unavailable PROBLEMS Type Condition ICD9-CM Code [id number] Code Onset Dates Condition Status SNOMED Code Problem Cannabis use disorder, mild, abuse F12.10 Active 49611400 Problem COPD exacerbation J44.1 Active 123548613 Problem Plantar fasciitis M72.2 Active 691306181 Problem Coronary artery disease involving [place] coronary artery of [place] heart without angina pectoris I25.10 Active 6150096218701 Problem Chronic bronchitis, unspecified chronic bronchitis type J42 Active 51872902 Problem Gastroesophageal reflux disease without esophagitis K21.9 Active 550991794 Problem Hypothyroidism, postop E89.0 Active 14763885 Problem Essential hypertension I10 Active 79307189 Problem Depressive disorder F32.9 Active 05008023 Problem Other chronic pain G89.29 Active 90144619 Problem Lumbago with sciatica, right side M54.41 Active 805803733 Problem Opioid use disorder F11.99 Active 14941776 Problem Stage 3 chronic kidney disease N18.3 Active 390550448 Problem Chronic pain syndrome G89.4 Active 352649094 ALLERGIES Substance Reaction Event Type Date Status Penicillin V Potassium anaphylaxis Drug Allergy Oct, Active Nubain Unknown Drug Allergy Oct, Active Lyrica rash and swelling Drug Allergy Oct, Active Levaquin Unknown Drug Allergy Oct, Active ENCOUNTERS Encounter Location Date Diagnosis [facility] [address] [facility] [id number] [address] Feb, [facility] [address] [facility] [id number], [place] [address] Jan, Chronic congestive heart failure, unspecified heart failure type I50.9 ; Essential hypertension I10 ; Weight loss counseling, encounter for Z71.3 and Coronary artery disease involving [place] coronary artery of [place] heart without angina pectoris I25.10 [facility] [address], [place] [address] Dec, Chronic pain syndrome G89.4 [facility] [id number] [place] [address] 85477- 3618 Dec, Acute respiratory failure with hypoxia J96.01 [facility] [id number] [place] [address] 82785- 2789 Dec, [facility] [id number] [place] [address] 28608- 4337 Dec, Chronic pain syndrome G89.4 [facility] [id number] [place] [address] 48058- 5513 Dec, Stage 3 chronic kidney disease N18.3 and Essential hypertension I10 [place] [id number] [place] [address] 73247- 2731 Dec, Well woman exam Z01.419 ; Screening for cervical cancer Z12.4 ; Screening for breast cancer Z12.31 and Stage 3 chronic kidney disease N18.3 [facility] [id number] [place] [address] 20593- 7746 Nov, [facility] [id number] [place] [address] 07483- 9467 Nov, Chronic pain syndrome G89.4 [facility] [id number] [place] [address] 32604- 6282 Nov, Stage 3 chronic kidney disease N18.3 ; Chronic bronchitis, unspecified chronic bronchitis type J42 and Elevated brain natriuretic peptide ( BNP) level R79.89 [facility] [id number] [place] [address] 78306- 8831 Nov, Chronic pain syndrome G89.4 [facility] [id number] [place] [address] 18628- 6315 Nov, [facility] [id number] [place] [address] 01847- 8346 Nov, Essential hypertension I10 ; Hypothyroidism, postop E89.0 ; COPD exacerbation J44.1 ; Opioid use disorder F11.99 and Chronic pain syndrome G89.4 [place] [id number] [place] [address] 71739- 4745 Nov, Essential hypertension I10 [place] [id number] [place] [address] 79594- 6734 Nov, Lumbago with sciatica, right side M54.41 ; Essential hypertension I10 ; Hypothyroidism, postop E89.0 ; Chronic bronchitis, unspecified chronic bronchitis type J42 ; Gastroesophageal reflux disease without esophagitis K21.9 ; Depressive disorder F32.9 and Plantar fasciitis of left foot M72.2 [place] [id number] [place] [address] 09779- 6364 Oct, [place] [address] [address]- 3834 Oct, Chronic pain syndrome G89.4 ; Opioid use disorder F11.99 and Plantar fasciitis M72.2 [place] [id number] [place] [address] 79730- 1782 Oct, [place] [id number] [place] [address] 41519- 1426 Oct, [place] [id number] [place] [address] 84286- 0083 Oct, Opioid use disorder F11.99 ; Chronic pain syndrome G89.4 and Cannabis use disorder, mild, abuse F12.10 [facility] [id number] [place] [address] 67751- 3970 September, [place] [address] [address]- [address] September, Lumbago with sciatica, right side M54.41 ; Other chronic pain G89.29 and At risk for sleep apnea Z91.89 IMMUNIZATIONS No Known Immunizations SOCIAL HISTORY Never Assessed REASON FOR VISIT Pain Management f/u, PT has concerns with her left foot being swollen and in pain-Edith CABEZAS PLAN OF CARE Activity Details Follow Up 4 Weeks Reason:chronic pain taper VITAL SIGNS Height 63.5 in 2017-11-03 Weight 194.4 lbs 2017-11-03 Temperature 99.0 degrees Fahrenheit 2017-11-03 Heart Rate 100 bpm 2017-11-03 Respiratory Rate 18 2017-11-03 BMI 33.89 kg/m2 2017-11-03 Blood pressure systolic 188 mmHg 2017-11-03 Blood pressure diastolic 98 mmHg 2017-11-03 MEDICATIONS Medication Instructions Dosage Frequency Start Date End Date Duration Status Embeda 100-4 MG Orally Once a day in the morning 1 capsule Oct, Nov, 14 days Active Anoro Ellipta 62.5-25 MCG/INH Inhalation Once a day 1 puff 24h Active Embeda 80-3.2 MG Orally 2 times a day 1 capsule 12h Oct, Nov, 14 days Active Metoclopramide HCl 10 mg Orally Once a day 1 tablet as needed 24h Unknown Gabapentin 300 MG Orally Once a day 3 capsules before bedtime 24h Active Zolpidem Tartrate 10 mg Orally Once a day 1 tablet at bedtime 24h Active Losartan Potassium 50 MG Orally Once a day 1 tablet 24h Active Celecoxib 200 MG Orally Once a day 1 capsule with food 24h Active Embeda 80-3.2 MG Orally Once a day 1 capsule 24h Oct, Nov, Active Embeda 100-4 MG Orally Once a day 1 capsule 24h Oct, Nov, Active Abilify 5 MG Orally Once a day 1 tablet 24h Active Ventolin HFA 108 (90 Base) MCG/ACT Inhalation every 6 hrs 2 puffs as needed 6h Active Carvedilol 25 MG Orally Once a day 1 tablet 24h Active Levothyroxine Sodium 100 MCG Orally Once a day 1 tablet on an empty stomach in the morning 24h Active Ranitidine HCl 300 MG Orally twice a day 1 capsule 12h Active RESULTS No Results PROCEDURES No Known procedures INSTRUCTIONS MEDICATIONS ADMINISTERED No Known Medications MEDICAL (GENERAL) HISTORY Type Description Date Medical History Fibromyalgia Medical History Degenerative disc disease- lumbar spine- MRI L-spine mild- moderate chronic deg. spondylosis most prominent at L5-S1 Medical History Hypertension Medical History Right hip replacement 2016 Medical History cervical cancer- dx 2000 Medical History DVT right femoral vein 07/2016 Medical History COPD (PFTs WNL 11/2015), last CXR 09/06/17- basilar atelectasis vs scarring Medical History 2018 plantar fasciitis Surgical History Right hip replacement 2017 Surgical History Tubal ligation Surgical History Right knee surgery Surgical History Colonoscopy 2004, WNL Surgical History Hysterectomy and cisplatin implant for cervical cancer tx 2000 Hospitalization History post surgery Hospitalization History pneumonia/bronchitis multiple stays Hospitalization History Difficulty breathing - 4 night stay [facility] 11/2017
--- OUTSIDE RECORDS SUMMARY | 2018-01-13 19:27 | XMS REPORT ---
Author Author HELENA MA [facility] Address [address] [place] [address] Care Team Providers Care Softball Player Name Role Phone HELENA MA Unavailable PROBLEMS Type Condition ICD9-CM Code [id number] Code Onset Dates Condition Status SNOMED Code Problem Cannabis use disorder, mild, abuse F12.10 Active 08224779 Problem COPD exacerbation J44.1 Active 729182192 Problem Plantar fasciitis M72.2 Active 621426150 Problem Coronary artery disease involving [place] coronary artery of [place] heart without angina pectoris I25.10 Active 4735633445146 Problem Chronic bronchitis, unspecified chronic bronchitis type J42 Active 67553743 Problem Gastroesophageal reflux disease without esophagitis K21.9 Active 101445414 Problem Hypothyroidism, postop E89.0 Active 19822888 Problem Essential hypertension I10 Active 31825623 Problem Depressive disorder F32.9 Active 23324200 Problem Other chronic pain G89.29 Active 67363902 Problem Lumbago with sciatica, right side M54.41 Active 759124318 Problem Opioid use disorder F11.99 Active 12776011 Problem Stage 3 chronic kidney disease N18.3 Active 247074496 Problem Chronic pain syndrome G89.4 Active 280082611 ALLERGIES No Information ENCOUNTERS Encounter Location Date Diagnosis [facility] [id number] [address] Feb, [facility] [id number] [address] Jan, Chronic congestive heart failure, unspecified heart failure type I50.9 ; Essential hypertension I10 ; Weight loss counseling, encounter for Z71.3 and Coronary artery disease involving [place] coronary artery of [place] heart without angina pectoris I25.10 [facility] [address] [facility] [id number] [address] Dec, Chronic pain syndrome G89.4 [place] [address], [place] [address] Dec, Acute respiratory failure with hypoxia J96.01 [place] [address], [place] [address]- 0[address] Dec, [place] [address], [place] [address]- [address] Dec, Chronic pain syndrome G89.4 [place] [address], [place] [address] 6[address] Dec, Stage 3 chronic kidney disease N18.3 and Essential hypertension I10 [place] [id number] [place] [address] 17774- 2168 Dec, Well woman exam Z01.419 ; Screening for cervical cancer Z12.4 ; Screening for breast cancer Z12.31 and Stage 3 chronic kidney disease N18.3 [place] [address], [place] [address] Nov, [place] [address], [place] [address]- 6[address] Nov, Chronic pain syndrome G89.4 [place] [address], [place] [address]- 277[address] Nov, Stage 3 chronic kidney disease N18.3 ; Chronic bronchitis, unspecified chronic bronchitis type J42 and Elevated brain natriuretic peptide ( BNP) level R79.89 [place] [address], [place] [address]- 76[address] Nov, Chronic pain syndrome G89.4 [place] [address], [place] [address]- 5[address] Nov, [place] [address], [place] [address]- 59[address] Nov, Essential hypertension I10 ; Hypothyroidism, postop E89.0 ; COPD exacerbation J44.1 ; Opioid use disorder F11.99 and Chronic pain syndrome G89.4 [place] [id number] [place] [address] 05052- 0934 Nov, Essential hypertension I10 [place] [id number] [place] [address] 61699- 9335 03 Nov, 2017 Lumbago with sciatica, right side M54.41 ; Essential hypertension I10 ; Hypothyroidism, postop E89.0 ; Chronic bronchitis, unspecified chronic bronchitis type J42 ; Gastroesophageal reflux disease without esophagitis K21.9 ; Depressive disorder F32.9 and Plantar fasciitis of left foot M72.2 [place] [id number] [place] [address] 59581- 1679 Oct, [place] [id number] [place] [address] 29717- 4878 Oct, Chronic pain syndrome G89.4 ; Opioid use disorder F11.99 and Plantar fasciitis M72.2 [place] [id number] [place] [address] 07632- 4742 Oct, [place] [id number] [place] [address] 39641- 9461 Oct, [place] [id number] [place] [address] 59504- 3355 Oct, Opioid use disorder F11.99 ; Chronic pain syndrome G89.4 and Cannabis use disorder, mild, abuse F12.10 [place] [id number] [place] [address] 95299- 5011 September, [place] [id number] [place] [address] 07608- 6928 September, Lumbago with sciatica, right side M54.41 ; Other chronic pain G89.29 and At risk for sleep apnea Z91.89 IMMUNIZATIONS No Known Immunizations SOCIAL HISTORY Never Assessed REASON FOR VISIT Lab (walk-in) PLAN OF CARE VITAL SIGNS MEDICATIONS Unknown Medications RESULTS No Results PROCEDURES Procedure Date Ordered Result Body Site LAB NOT BILLED BY [facility] November 17, 2017 INSTRUCTIONS MEDICATIONS ADMINISTERED No [...] 09/06/17- basilar atelectasis vs scarring Medical History 2017 plantar fasciitis Surgical History Right hip replacement 2016 Surgical History Tubal ligation Surgical History Right knee surgery Surgical History Colonoscopy 2004, WNL Surgical History Hysterectomy and cisplatin implant for cervical cancer tx 2000 Hospitalization History post surgery Hospitalization History pneumonia/bronchitis multiple stays Hospitalization History Difficulty breathing - 4 night stay [facility] 11/2017
--- OUTSIDE RECORDS SUMMARY | 2018-01-13 19:27 | XMS REPORT ---
Author Author DIGNA VAUGHN [facility] Address [address] [place] [address] Care Team Providers Care Helper Maintenance Cleaning Name Role Phone DIGNA VAUGHN Unavailable PROBLEMS Type Condition ICD9-CM Code DNQ22-HY Code Onset Dates Condition Status SNOMED Code Problem Cannabis use disorder, mild, abuse F12.10 Active 43313982 Problem COPD exacerbation J44.1 Active 920214454 Problem Plantar fasciitis M72.2 Active 429375687 Problem Coronary artery disease involving ek[place] coronary artery of ek[place] heart without angina pectoris I25.10 Active 5075851487442 Problem Chronic bronchitis, unspecified chronic bronchitis type J42 Active 71369232 Problem Gastroesophageal reflux disease without esophagitis K21.9 Active 808225330 Problem Hypothyroidism, postop E89.0 Active 03734828 Problem Essential hypertension I10 Active 60299045 Problem Depressive disorder F32.9 Active 34398808 Problem Other chronic pain G89.29 Active 62068246 Problem Lumbago with sciatica, right side M54.41 Active 157179207 Problem Opioid use disorder F11.99 Active 72108422 Problem Stage 3 chronic kidney disease N18.3 Active 788527192 Problem Chronic pain syndrome G89.4 Active 721762508 ALLERGIES No Information ENCOUNTERS Encounter Location Date Diagnosis [facility] [id number] [address] Feb, [facility] [id number] [address] Jan, Chronic congestive heart failure, unspecified heart failure type I50.9 ; Essential hypertension I10 ; Weight loss counseling, encounter for Z71.3 and Coronary artery disease involving ek[place] coronary artery of ek[place] heart without angina pectoris I25.10 [facility] [id number] [address] Dec, Chronic pain syndrome G89.4 [place] [address] [address] Dec, Acute respiratory failure with hypoxia J96.01 [place] [id number] [place] [address] 72844- 9775 Dec, [place] [id number] [place] [address] 54734- 3315 Dec, Chronic pain syndrome G89.4 [place] [id number] [place] [address] 55145- 2251 Dec, Stage 3 chronic kidney disease N18.3 and Essential hypertension I10 [place] [id number] [place] [address] 26765- 0419 Dec, Well woman exam Z01.419 ; Screening for cervical cancer Z12.4 ; Screening for breast cancer Z12.31 and Stage 3 chronic kidney disease N18.3 [place] [id number] [place] [address] 66821- 4429 Nov, [place] [id number] [place] [address] 88057- 4852 Nov, Chronic pain syndrome G89.4 [place] [id number] [place] [address] 26655- 4069 Nov, Stage 3 chronic kidney disease N18.3 ; Chronic bronchitis, unspecified chronic bronchitis type J42 and Elevated brain natriuretic peptide ( BNP) level R79.89 [place] [address] [place] [address] 78715- 7885 Nov, Chronic pain syndrome G89.4 [place] [id number] [place] [address] 54642- 0762 Nov, [place] [id number] [place] [address] 24370- 9935 Nov, Essential hypertension I10 ; Hypothyroidism, postop E89.0 ; COPD exacerbation J44.1 ; Opioid use disorder F11.99 and Chronic pain syndrome G89.4 [place] [id number] [place] [address] 04897- 2254 Nov, Essential hypertension I10 [place] [id number] [place] [address] 99997- 1894 Nov, Lumbago with sciatica, right side M54.41 ; Essential hypertension I10 ; Hypothyroidism, postop E89.0 ; Chronic bronchitis, unspecified chronic bronchitis type J42 ; Gastroesophageal reflux disease without esophagitis K21.9 ; Depressive disorder F32.9 and Plantar fasciitis of left foot M72.2 [place] [id number] [place] [address] 49271- 9602 Oct, [place] [id number] [place] [address] 43536- 6453 Oct, Chronic pain syndrome G89.4 ; Opioid use disorder F11.99 and Plantar fasciitis M72.2 [place] [id number] [place] [address] 28221- 2552 Oct, [place] [id number] [place] [address] 81581- 0459 Oct, [place] [id number] [place] [address] 08807- 9942 Oct, Opioid use disorder F11.99 ; Chronic pain syndrome G89.4 and Cannabis use disorder, mild, abuse F12.10 [place] [id number] [place] [address] 41344- 3366 September, [place] [id number] [place] [address] 71581- 4392 September, Lumbago with sciatica, right side M54.41 ; Other chronic pain G89.29 and At risk for sleep apnea Z91.89 IMMUNIZATIONS No Known Immunizations SOCIAL HISTORY Never Assessed REASON FOR VISIT Controlled Med Refill PLAN OF CARE VITAL SIGNS MEDICATIONS Medication Instructions Dosage Frequency Start Date End Date Duration Status Embeda 30-1.2 MG Orally Once a day in evening 2 capsule Nov, 14 days Active Embeda 80-3.2 MG Orally 1 times a day in AM 1 capsule Nov, Nov, 14 days Active RESULTS No Results PROCEDURES No Known [...] History Difficulty breathing - [address] [facility] 11/2017
--- OUTSIDE RECORDS SUMMARY | 2018-01-13 19:27 | XMS REPORT ---
Author Author ELIAS MO Organization [facility] Address [address] [place] [address] Care Team Providers Care Mathematical Sciences Professor Name Role Phone ELIAS MO Unavailable PROBLEMS Type Condition ICD9-CM Code [id number] Code Onset Dates Condition Status SNOMED Code Problem Chronic pain syndrome G89.4 Active 119134513 Problem Plantar fasciitis M72.2 Active 075949374 Problem Opioid use disorder F11.99 Active 99990559 Problem Stage 3 chronic kidney disease N18.3 Active 738722925 Problem Other chronic pain G89.29 Active 00311021 Problem Lumbago with sciatica, right side M54.41 Active 344788554 Problem Cannabis use disorder, mild, abuse F12.10 Active 35066589 Problem Essential hypertension I10 Active 25065260 Problem Depressive disorder F32.9 Active 24973669 Problem Hypothyroidism, postop E89.0 Active 91294875 Problem COPD exacerbation J44.1 Active 995405531 Problem Gastroesophageal reflux disease without esophagitis K21.9 Active 571415213 Problem Chronic bronchitis, unspecified chronic bronchitis type J42 Active 38967628 ALLERGIES No Information ENCOUNTERS Encounter Location Date Diagnosis [facility] [id number], [place] [address] Jan, [facility] [address] [place] [address] 97705- 9114 Dec, Chronic pain syndrome G89.4 [facility] [id number], [place] [address] 8345 Dec, Acute respiratory failure with hypoxia J96.01 [facility] [address], [place] [address] Dec, [facility] [id number], [place] [address] 1799 Dec, Chronic pain syndrome G89.4 [place] [address], [place] [address] 5340 Dec, Stage 3 chronic kidney disease N18.3 and Essential hypertension I10 [place] [id number], [place] [address] 9815 Dec, Well woman exam Z01.419 ; Screening for cervical cancer Z12.4 ; Screening for breast cancer Z12.31 and Stage 3 chronic kidney disease N18.3 [place] [id number], [place] [address] 5380 Nov, [place] [id number] [place] [address] 84519- 4286 Nov, Chronic pain syndrome G89.4 [place] [id number] [place] [address] 66316- 7899 Nov, Stage 3 chronic kidney disease N18.3 ; Chronic bronchitis, unspecified chronic bronchitis type J42 and Elevated brain natriuretic peptide ( BNP) level R79.89 [place] [address], [place] [address]- 9027 Nov, Chronic pain syndrome G89.4 [place] [address] [place] [address] 68876- 2107 Nov, [place] [address], [place] [address]- 6465 Nov, Essential hypertension I10 ; Hypothyroidism, postop E89.0 ; COPD exacerbation J44.1 ; Opioid use disorder F11.99 and Chronic pain syndrome G89.4 [place] [address], [place] [address]- 5999 Nov, Essential hypertension I10 [place] [address] [place] [address] 27104- 8381 Nov, Lumbago with sciatica, right side M54.41 ; Essential hypertension I10 ; Hypothyroidism, postop E89.0 ; Chronic bronchitis, unspecified chronic bronchitis type J42 ; Gastroesophageal reflux disease without esophagitis K21.9 ; Depressive disorder F32.9 and Plantar fasciitis of left foot M72.2 [place] [id number] [place] [address] 49226- 7122 Oct, [place] [id number] [place] [address] 35563- 8483 Oct, Chronic pain syndrome G89.4 ; Opioid use disorder F11.99 and Plantar fasciitis M72.2 [place] [id number] [place] [address] 09958- 6607 Oct, [place] [id number] [place] [address] 97912- 1235 Oct, [place] [id number] [place] [address] 17311- 9952 Oct, Opioid use disorder F11.99 ; Chronic pain syndrome G89.4 and Cannabis use disorder, mild, abuse F12.10 [place] [id number] [place] [address] 01464- 3398 September, [place] [id number] [place] [address] 16553- 6865 September, Lumbago with sciatica, right side M54.41 ; Other chronic pain G89.29 and At risk for sleep apnea Z91.89 IMMUNIZATIONS No Known Immunizations SOCIAL HISTORY Never Assessed REASON FOR VISIT Controlled Rx PLAN OF CARE VITAL SIGNS MEDICATIONS Unknown Medications RESULTS No Results PROCEDURES No Known procedures [...] History Difficulty breathing - 4 night stay [facility] 11/2017
--- OUTSIDE RECORDS SUMMARY | 2018-01-13 19:27 | XMS REPORT ---
Author Author ELIAS MO Organization [facility] Address [address] 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.10 Active 6855325645242 Problem Chronic bronchitis, unspecified chronic bronchitis type J42 Active 19396448 Problem Gastroesophageal reflux disease without esophagitis K21.9 Active 278407492 Problem Hypothyroidism, postop E89.0 Active 61207658 Problem Essential hypertension I10 Active 81090838 Problem Depressive disorder F32.9 Active 21571493 Problem Other chronic pain G89.29 Active 13900263 Problem Lumbago with sciatica, right side M54.41 Active 605758902 Problem Opioid use disorder F11.99 Active 37767041 Problem Stage 3 chronic kidney disease N18.3 Active 046558771 Problem Chronic pain syndrome G89.4 Active 025277598 ALLERGIES No Information ENCOUNTERS Encounter Location Date Diagnosis [facility] [id number] [address] Feb, [facility] [id number] [address]- 8924 Jan, Chronic congestive heart failure, unspecified heart failure type I50.9 ; Essential hypertension I10 ; Weight loss counseling, encounter for Z71.3 and Coronary artery disease involving upper [place] coronary artery of upper [place] heart without angina pectoris I25.10 [facility] [id number] [address]- 8944 Dec, Chronic pain syndrome G89.4 [place] [address] [address]- 9564 Dec, Acute respiratory failure with hypoxia J96.01 [place] [id number] [place] [address] 77610- 4478 Dec, [place] [id number] [place] [address] 29571- 8078 Dec, Chronic pain syndrome G89.4 [place] [id number] [place] [address] 05702- 0561 Dec, Stage 3 chronic kidney disease N18.3 and Essential hypertension I10 [place] [id number] [place] [address] 74349- 0411 Dec, Well woman exam Z01.419 ; Screening for cervical cancer Z12.4 ; Screening for breast cancer Z12.31 and Stage 3 chronic kidney disease N18.3 [place] [id number] [place] [address] 66953- 4181 Nov, [place] [id number] [place] [address] 41572- 2368 Nov, Chronic pain syndrome G89.4 [place] [id number] [place] [address] 30970- 9521 Nov, Stage 3 chronic kidney disease N18.3 ; Chronic bronchitis, unspecified chronic bronchitis type J42 and Elevated brain natriuretic peptide ( BNP) level R79.89 [place] [address] [place] [address] 30226- 5856 Nov, Chronic pain syndrome G89.4 [place] [id number] [place] [address] 97425- 1028 Nov, [place] [id number] [place] [address] 48442- 4581 Nov, Essential hypertension I10 ; Hypothyroidism, postop E89.0 ; COPD exacerbation J44.1 ; Opioid use disorder F11.99 and Chronic pain syndrome G89.4 [place] [id number] [place] [address] 88463- 0836 Nov, Essential hypertension I10 [place] [id number] [place] [address] 82044- 7371 Nov, Lumbago with sciatica, right side M54.41 ; Essential hypertension I10 ; Hypothyroidism, postop E89.0 ; Chronic bronchitis, unspecified chronic bronchitis type J42 ; Gastroesophageal reflux disease without esophagitis K21.9 ; Depressive disorder F32.9 and Plantar fasciitis of left foot M72.2 [place] [id number] [place] [address] 10095- 6276 Oct, [place] [id number] [place] [address] 74384- 6715 Oct, Chronic pain syndrome G89.4 ; Opioid use disorder F11.99 and Plantar fasciitis M72.2 [place] [id number] [place] [address] 59635- 2181 Oct, [place] [id number] [place] [address] 56814- 6118 Oct, [place] [id number] [place] [address] 79755- 1032 Oct, Opioid use disorder F11.99 ; Chronic pain syndrome G89.4 and Cannabis use disorder, mild, abuse F12.10 [place] [id number] [place] [address] 44443- 9911 September, [place] [id number] [place] [address] 98796- 9997 September, Lumbago with sciatica, right side M54.41 ; Other chronic pain G89.29 and At risk for sleep apnea Z91.89 IMMUNIZATIONS No Known Immunizations SOCIAL HISTORY Never Assessed REASON FOR VISIT Medication refill request PLAN OF CARE VITAL SIGNS MEDICATIONS Unknown [...] History Difficulty breathing - 4 night stay [facility] 11/2017
--- OUTSIDE RECORDS SUMMARY | 2018-01-13 19:27 | XMS REPORT ---
Author Author HELENA MA [facility] Address [address] [place] [address] Care Team Providers Care President [employer] Name Role Phone HELENA MA Unavailable PROBLEMS Type Condition ICD9-CM Code YQC32-TR Code Onset Dates Condition Status SNOMED Code Problem Chronic pain syndrome G89.4 Active 740008909 Problem Plantar fasciitis M72.2 Active 316123730 Problem Cannabis use disorder, mild, abuse F12.10 Active 75682474 Problem Stage 3 chronic kidney disease N18.3 Active 814943903 Problem Other chronic pain G89.29 Active 00274560 Problem Lumbago with sciatica, right side M54.41 Active 190079121 Problem Opioid use disorder F11.99 Active 39799138 Problem Essential hypertension I10 Active 43070959 Problem Depressive disorder F32.9 Active 92992726 Problem Hypothyroidism, postop E89.0 Active 39199001 Problem COPD exacerbation J44.1 Active 448204275 Problem Gastroesophageal reflux disease without esophagitis K21.9 Active 845609361 Problem Chronic bronchitis, unspecified chronic bronchitis type J42 Active 74379812 ALLERGIES Substance Reaction Event Type Date Status Penicillin V Potassium anaphylaxis Drug Allergy Nov, Active Nubain Unknown Drug Allergy Nov, Active Lyrica rash and swelling Drug Allergy Nov, Active Levaquin Unknown Drug Allergy Nov, Active ENCOUNTERS Encounter Location Date Diagnosis [facility] [address] [facility] [id number] [address] Jan, [facility] [address] [address]- 4728 Dec, Chronic pain syndrome G89.4 [facility] [id number] [address]- 0229 Dec, Acute respiratory failure with hypoxia J96.01 [facility] [address] [address]- 3850 Dec, [facility] [address] [place] [address] 25476- 5722 Dec, Chronic pain syndrome G89.4 [facility] [address] [address]- 4689 Dec, Stage 3 chronic kidney disease N18.3 and Essential hypertension I10 [place] [id number] [place] [address] 26172- 2664 Dec, Well woman exam Z01.419 ; Screening for cervical cancer Z12.4 ; Screening for breast cancer Z12.31 and Stage 3 chronic kidney disease N18.3 [place] [id number] [place] [address] 65481- 8740 Nov, [place] [id number] [place] [address] 74122- 9415 Nov, Chronic pain syndrome G89.4 [facility] [address] [place] [address] 23788- 6352 Nov, Stage 3 chronic kidney disease N18.3 ; Chronic bronchitis, unspecified chronic bronchitis type J42 and Elevated brain natriuretic peptide ( BNP) level R79.89 [place] [address] [address]- 0429 Nov, Chronic pain syndrome G89.4 [place] [address] [address]- 0732 Nov, [place] [address] [place] [address] 54460- 0112 Nov, Essential hypertension I10 ; Hypothyroidism, postop E89.0 ; COPD exacerbation J44.1 ; Opioid use disorder F11.99 and Chronic pain syndrome G89.4 [facility] [address] [address]- 7244 Nov, Essential hypertension I10 [facility] [id number] [place] [address] 89285- 3568 Nov, Lumbago with sciatica, right side M54.41 ; Essential hypertension I10 ; Hypothyroidism, postop E89.0 ; Chronic bronchitis, unspecified chronic bronchitis type J42 ; Gastroesophageal reflux disease without esophagitis K21.9 ; Depressive disorder F32.9 and Plantar fasciitis of left foot M72.2 [place] [id number] [place] [address] 74323- 8151 Oct, [place] [address] 301[address]- 7948 Oct, Chronic pain syndrome G89.4 ; Opioid use disorder F11.99 and Plantar fasciitis M72.2 [place] [id number] [place] [address] 39294- 2975 Oct, [place] [address] 93012- 4855 Oct, [place] [address] 74943- 8549 Oct, Opioid use disorder F11.99 ; Chronic pain syndrome G89.4 and Cannabis use disorder, mild, abuse F12.10 [place] [id number] [place] [address] 09037- 9630 September, [place] [id number] [place] [address] 02465- 5827 September, Lumbago with sciatica, right side M54.41 ; Other chronic pain G89.29 and At risk for sleep apnea Z91.89 IMMUNIZATIONS No Known Immunizations SOCIAL HISTORY Never Assessed REASON FOR VISIT Med RFs , wants provider to be aware of her plantar fasciitis-awoods PLAN OF CARE Activity Details Follow Up 3 Months Reason:WWE VITAL SIGNS Height 63.5 in 2017-11-08 Weight 198.5 lbs 2017-11-08 Temperature 98.1 degrees Fahrenheit 2017-11-08 Heart Rate 83 bpm 2017-11-08 Respiratory Rate 20 2017-11-08 BMI 34.61 kg/m2 2017-11-08 Blood pressure systolic 162 mmHg 2017-11-08 Blood pressure diastolic 90 mmHg 2017-11-08 MEDICATIONS Medication Instructions Dosage Frequency Start Date End Date Duration Status Embeda 80-3.2 MG Orally 2 times a day 1 capsule 12h Oct, Nov, 14 days Active Carvedilol 25 MG Orally twice daily 1 tablet 30 day Active Ventolin HFA 108 (90 Base) MCG/ACT Inhalation every 6 hrs 2 puffs as needed 6h Active Losartan Potassium 100 mg Orally Once a day 1 tablet 24h Nov, 30 day(s) Active Levothyroxine Sodium 100 MCG Orally Once a day 1 tablet on an empty stomach in the morning 24h Active Embeda 100-4 MG Orally Once a day 1 capsule 24h Oct, Nov, Active Gabapentin 300 MG Orally twice a day 2 capsule in afternoon and 3 capsule at bedtime 12h Nov, 30 days Active Embeda 80-3.2 MG Orally Once a day 1 capsule 24h Oct, Nov, Active Ranitidine HCl 300 MG Orally twice a day 1 capsule 12h 30 day Active Abilify 5 MG Orally Once a day 1 tablet 24h 30 day Active Celecoxib 200 MG Orally Once a day 1 capsule with food 24h Dec, 30 day Active Gabapentin 300 MG Orally Once a day 3 capsules before bedtime 24h Active Anoro Ellipta 62.5-25 MCG/INH Inhalation Once a day 1 puff 24h Active RESULTS No Results PROCEDURES No Known [...] History Difficulty breathing - 4 night stay [facility] 11/2017
[2018-01-13 20:46] VITALS: BP 158/78
[2018-01-13 21:36] LABS: BILIRUBIN,URINE NEGATIVE (NEGATIVE); CLARITY,URINE CLEAR; COLOR,URINE YELLOW; GLUCOSE, URINE (UA) NEGATIVE (NEGATIVE); KETONES,URINE NEGATIVE (NEGATIVE); LEUKOCYTE ESTERASE ,URINE 1+ (NEGATIVE); NITRITE,URINE NEGATIVE (NEGATIVE); PH,URINE 5 (5-9); PROTEIN,URINE NEGATIVE (NEGATIVE); UROBILINOGEN,URINE NORMAL (NORMAL)
--- NOTE | 2018-01-13 21:41 | ED General ---
General Chief Complaint: General Problems/Pain Stated Complaint: SOB/AMS Nursing Triage Note: WEAKNESS AND FOGGY THOUGHTS STARTING 2 DAYS AGO. GREATEST WEAKNESS IS BACK AND HANDS. FALLS ASLEEP EASILY WHEN SAT DOWN. FEVER TODAY, DID NOT HAVE WHEN WENT TO THE CLINIC LATE TONIGHT. 1 WEEK AGO TUESDAY HAD 2 HEART STENTS AFTER STRESS TEST SHOWED BLOCKAGE. Nursing Sepsis Screen: No Definite Risk Source of Information: Patient Exam Limitations: No Limitations History of Present Illness Date Seen by Provider: Jan 13, 2018 Time Seen by Provider: 21:15 Initial Comments Here with report of feeling weak and foggy and having a little bit of shortness of breath. This is been going on for a few days. Her friend told her that every time she is sitting still that she falls asleep. States this is new for her. Does have history of heart problems and was recently started on Lasix and potassium. She normally wears 3 L of oxygen at home. She is not on CPAP. Reportedly has fever at some point and that appears to be treated here as well. Denies dysuria or diarrhea. Denies nausea or vomiting. Timing/Duration: 2-3 Days, Getting Worse Severity: Moderate Associated Systoms: No Chest Pain; Cough, Fever/Chills; No Headaches; Malaise; No Nausea/Vomiting; Shortness of Air, Weakness Allergies and Home Medications Allergies Coded Allergies: Penicillins (Unverified Allergy, Severe, 01/13/18) levofloxacin (Unverified Allergy, Unknown, 01/13/18) nalbuphine (Unverified Allergy, Unknown, 01/13/18) pregabalin (Unverified Allergy, Unknown, 01/13/18) Home Medications Acetaminophen 500 Mg Tablet, 1,000 MG PO Q6H PRN for PAIN-MILD, (Reported) Albuterol Sulfate 18 Gm Hfa.aer.ad, 2 PUFF INH QID PRN for SHORTNESS OF BREATH, (Reported) Aripiprazole 5 Mg Tablet, 5 MG PO DAILY, (Reported) Aspirin 81 Mg Tablet.dr, 81 MG PO DAILY Prescribed by: PAULA GÓMEZ on 01/05/18 8315 Carvedilol 25 Mg Tablet, 25 MG PO BID, (Reported) Gabapentin 300 Mg Capsule, 600 MG PO 1000, (Reported) TAKES 2 (300MG) CAPSULES Gabapentin 300 Mg Capsule, 900 MG PO HS, (Reported) TAKES 3 (300MG) CAPSULES Levothyroxine Sodium 100 Mcg Tablet, 100 MCG PO DAILY, (Reported) Lidocaine 1 Each Adh..patch, 1 PATCH TD DAILY, (Reported) Losartan Potassium 100 Mg Tablet, 100 MG PO DAILY, (Reported) Morphine Sulfate/Naltrexone 1 Each Cap.er.po, 1 CAP PO DAILY, (Reported) Morphine Sulfate/Naltrexone 1 Each Cap.er.po, 2 CAP PO HS, (Reported) [place] 3 Polyunsat Fatty Acids 1,000 Mg Cap, 1,000 MG PO BID WITH MEALS Prescribed by: PAULA GÓMEZ on 01/05/18 1504 Ranitidine HCl 300 Mg Tablet, 300 MG PO BID, (Reported) Rosuvastatin Calcium 5 Mg Tablet, 5 MG PO HS Prescribed by: PAULA GÓMEZ on 01/05/18 1504 Ticagrelor 90 Mg Tablet, 90 MG PO BID Prescribed by: PAULA GÓMEZ on 01/05/18 1504 Umeclidinium Brm/Vilanterol Tr 1 Each Blst.w.dev, 1 PUFF INH DAILY, (Reported) Patient Home Medication List Home Medication List Reviewed: Yes Review of Systems Review of Systems Constitutional: see HPI, chills, fever, weakness EENTM: no symptoms reported Respiratory: see HPI Cardiovascular: see HPI, Hx of Intervention; No palpitations Gastrointestinal: no symptoms reported Genitourinary: no symptoms reported Musculoskeletal: no symptoms reported Skin: no symptoms reported Hematologic/Lymphatic: No Symptoms Reported All Other Systems Reviewed Negative Unless Noted: Yes Past Numuzgz-Vyafjo-Uvjbnz Hx Past Med/Social Hx: Reviewed Nursing Past Med/Soc Hx Patient Social History Alcohol Use: Denies Use Recreational Drug Use: No Smoking Status: Former Smoker Type Used: Cigarettes Former Smoker, Quit: Nov 17, 2013 Recent Foreign Travel: No Contact w/Someone Who Travel: No Recent Infectious Disease Expo: No Recent Hopitalizations: No Physical Abuse: No Sexual Abuse: No Immunizations Up To Date PED Vaccines UTD: Yes Date of Pneumonia Vaccine: Dec 07, 2016 Seasonal Allergies Seasonal Allergies: Yes Past Medical History Surgeries: Yes (R HIP REPLACEMENT, R KNEE SCOPE) Orthopedic, Tubal Ligation Respiratory: Yes Pneumonia, COPD Currently Using CPAP: No Currently Using BIPAP: No Cardiac: Yes (RIGHT LEG DVT, chf) Deep Vein Thrombosis, Hypertension Neurological: Yes (HX CLUSTER HEADACHES) Genitourinary: No Gastrointestinal: Yes Gastroesophageal Reflux Musculoskeletal: Yes Degenerate Disk Disease, Arthritis, Fibromyalgia, Chronic Back Pain Endocrine: Yes Hypothyroidsim HEENT: No Cancer: Yes Cervical What Type of Treatment Did You: Radiation Psychosocial: Yes Anxiety, Depression Integumentary: No Blood Disorders: No Family Medical History Reviewed Nursing Family Hx AIDS G8 BROTHER Alcoholism 19 FATHER Arthritis 19 MOTHER Cardiovascular disease 19 MOTHER Cataracts 19 MOTHER Diabetes mellitus 19 MOTHER Hypercholesterolemia 19 MOTHER Hypertension 19 MOTHER G8 BROTHER Neoplasm MATERNAL GRANDMOTHER (OVARIAN CANCER) MATERNAL AUNT (OVARIAN CANCER) Osteoporosis 19 MOTHER Physical Exam Vital Signs Vital Signs - First Documented Capillary Refill : Less Than 3 Seconds Height, Weight, BMI Height: 5'4.00" Weight: 190lbs. 0.0oz. [id number]; 56.7 BMI Method:Stated General Appearance: WD/WN, Other (drowsy) HEENT: PERRL/EOMI, Pharynx Normal Neck: Normal Inspection, Non Tender, Supple Respiratory: Lungs Clear, Normal Breath Sounds Cardiovascular: Regular Rate, Rhythm, No Murmur Gastrointestinal: Non Tender, Soft Back: Normal Inspection, No CVA Tenderness, No Vertebral Tenderness Extremity: Normal Range of Motion, Non Tender, Pedal Edema (2+ to the level of mid tibia bilateral) Neurologic/Psychiatric: Alert, Oriented x3, Other (falls asleep quickly but wakes up and answers questions appropriately.) Skin: Normal Color, Warm/Dry Focused Exam Lactate Level 01/13/18 22:06: Lactic Acid Level 0.91 Lactic Acid Level Laboratory Tests Test 01/13/18 22:06 Lactic Acid Level 0.91 MMOL/L (0.50-2.00) Progress/Results/Core Measures Suspected Sepsis Recent Fever Within 48 Hours: Yes Infection Criteria Present: None New/Unexplained Altered Menta: Yes Sepsis Screen: No Definite Risk SIRS Temperature:102.0 Pulse: 100 Respiratory Rate: 16 Laboratory Tests 01/13/18 21:36: White Blood Count 9.4 Blood Pressure 158 /78 Mean: 104 01/13/18 22:06: Lactic Acid Level 0.91 Laboratory Tests 01/13/18 21:36: Creatinine 3.12H, INR Comment 1.2, Platelet Count 306, Total Bilirubin 0.5 Results/Orders Lab Results Laboratory Tests Test 01/13/18 20:50 01/13/18 21:36 01/13/18 22:06 97/18 22:43 Range/Units Urine Color YELLOW Urine Clarity CLEAR Urine pH 5 5-9 Urine Specific [place] 1.010 L 1.016-1.022 Urine Protein NEGATIVE NEGATIVE Urine Glucose (UA) NEGATIVE NEGATIVE Urine Ketones NEGATIVE NEGATIVE Urine Nitrite NEGATIVE NEGATIVE Urine Bilirubin NEGATIVE NEGATIVE Urine Urobilinogen NORMAL NORMAL MG/DL Urine Leukocyte Esterase 1+ H NEGATIVE Urine RBC (Auto) 2+ H NEGATIVE Urine RBC 2-5 H /HPF Urine WBC 2-5 /HPF Urine Squamous Epithelial Cells 0-5 /HPF Urine Crystals NONE /LPF Urine Bacteria TRACE /HPF Urine Casts NONE /LPF Urine Mucus NEGATIVE /LPF Urine Culture Indicated NO White Blood Count 9.4 4.3-11.0 10^3/uL Red Blood Count 3.16 L 4.35-5.85 10^6/uL Hemoglobin 9.0 L 11.5-16.0 G/DL Hematocrit 29 L 35-52 % Mean Corpuscular Volume 90 80-99 FL Mean Corpuscular Hemoglobin 28 25-34 PG Mean Corpuscular Hemoglobin Concent 32 32-36 G/DL Red Cell Distribution Width 15.5 H 10.0-14.5 % Platelet Count 306 130-400 10^3/uL Mean Platelet Volume 9.3 7.4-10.4 FL Neutrophils (%) (Auto) 80 H 42-75 % Lymphocytes (%) (Auto) 10 L 12-44 % Monocytes (%) (Auto) 6 0-12 % Eosinophils (%) (Auto) 4 0-10 % Basophils (%) (Auto) 0 0-10 % Neutrophils # (Auto) 7.5 1.8-7.8 X 10^3 Lymphocytes # (Auto) 0.9 L 1.0-4.0 X 10^3 Monocytes # (Auto) 0.5 0.0-1.0 X 10^3 Eosinophils # (Auto) 0.4 H 0.0-0.3 10^3/uL Basophils # (Auto) 0.0 0.0-0.1 10^3/uL Prothrombin Time 15.0 H 12.2-14.7 SEC INR Comment 1.2 0.8-1.4 Activated Partial Thromboplast Time 34 24-35 SEC Sodium Level 135 135-145 MMOL/L Potassium Level 4.2 3.6-5.0 MMOL/L Chloride Level 100 98-107 MMOL/L Carbon Dioxide Level 21 21-32 MMOL/L Anion Gap 14 5-14 MMOL/L Blood Urea Nitrogen 41 H 7-18 MG/DL Creatinine 3.12 H 0.60-1.30 MG/DL Estimat Glomerular Filtration Rate 16 BUN/Creatinine Ratio 13 Glucose Level 113 H 70-105 MG/DL Calcium Level 9.5 8.5-10.1 MG/DL Corrected Calcium 9.6 8.5-10.1 MG/DL Magnesium Level 2.5 H 1.8-2.4 MG/DL Total Bilirubin 0.5 0.1-1.0 MG/DL Aspartate Amino Transf (AST/SGOT) 31 5-34 U/L Alanine Aminotransferase (ALT/SGPT) 27 0-55 U/L Alkaline Phosphatase 82 40-136 U/L Troponin I < 0.30 <0.30 NG/ML C-Reactive Protein High Sensitivity 7.32 H 0.00-0.50 MG/DL B-Type Natriuretic Peptide 301.4 H <100.0 PG/ML Total Protein 7.6 6.4-8.2 GM/DL Albumin 3.9 3.2-4.5 GM/DL Lactic Acid Level 0.91 0.50-2.00 MMOL/L Blood Gas Puncture Site LEFT RADIAL Blood Gas Patient Temperature 100.1 Arterial Blood pH 7.38 7.37-7.43 Arterial Blood Partial Pressure CO2 42 35-45 MMHG Arterial Blood Partial Pressure O2 85 79-93 MMHG Arterial Blood HCO3 24 23-27 MMOL/L Arterial Blood Total CO2 24.8 21.0-31.0 MMOL/L Arterial Blood Oxygen Saturation 96 94-100 % Arterial Blood Base Excess -0.7 -2.5-2.5 MMOL/L Jerod Test YES-POS Blood Gas Ventilator Setting NO Blood Gas Inspired Oxygen 3L My Orders Orders - BUDDY MOROCHO MD Arterial Blood Gas (01/13/18 21:24) BNP (01/13/18 21:24) Cbc With Automated Diff (01/13/18 21:24) Comprehensive Metabolic Panel (01/13/18 21:24) Hs C Reactive Protein (01/13/18 21:24) Magnesium (01/13/18 21:24) Troponin I (01/13/18 21:24) Ua Culture If Indicated (01/13/18 21:24) Saline Lock/Iv-Start (01/13/18 21:24) Ekg Tracing (01/13/18 21:24) O2 (01/13/18 21:24) Monitor-Rhythm Ecg Trace Only (01/13/18 21:24) Chest 1 View, Ap/Pa Only (01/13/18 21:24) Lactic Acid Analyzer (01/13/18 21:42) Blood Culture (01/13/18 21:42) Sputum Culture (01/13/18 21:42) Protime With Inr (01/13/18 21:42) Partial Thromboplastin Time (01/13/18 21:42) Vital Signs Adult Sepsis Patie Q15M (01/13/18 21:42) Remove Rings In Anticipation O (01/13/18 21:42) Vital Signs/I&O 01/13/18 01/13/18 01/13/18 01/13/18 20:46 20:46 20:46 20:46 Temp 102.0 102.0 102.0 Pulse 100 100 100 Resp 16 16 16 B/P (MAP) 158/78 (104) 158/78 158/78 (104) Pulse Ox 95 95 95 95 O2 Delivery Nasal Cannula Nasal Cannula Nasal Cannula O2 Flow Rate 3.00 3.00 3.00 3.00 3.00 Capillary Refill : Less Than 3 Seconds Blood Pressure Mean: 104 Progress Note : Progress Note Seen and evaluated. IV, labs, EKG and chest x-ray ordered. UA ordered. We will check blood cultures and lactic acid and initiate sepsis workup. ABG ordered as well. Monitor patient. 2300 labs reviewed. Really no acute findings. CRP is elevated white count has not. We're pending ABG. Chest x- ray shows vascular congestion and UA was negative. We did have to have consideration for underlying pneumonia. Awaiting ABG. 2330: I discussed the case with Dr. [place]. At this time we will go ahead and initiate treatment for pneumonia with the consideration that the lungs with the pressure congestion may actually hold infiltrate especially given the patient's fever earlier. Overall patient is feeling much better now. Rocephin 1 g IV ordered. Admit, inpatient status. Patient and family agree with plan. ECG Initial ECG Impression Date: Jan 13, 2018 Initial ECG Impression Time: 21:26 Initial ECG Rate: 89 Initial ECG Rhythm: Normal Sinus Initial ECG Comparisson: Unchanged Comment Sinus rhythm with normal axis. No evidence of ST elevation OR. Similar to previous of 01/02/18. Interpreted by me. Diagnostic Imaging Diagonstic Imaging: Xray Plain Films/CT/US/NM/MRI: chest Comments Bilateral pulmonary edema/vascular congestion. Question infiltrate in the bases right greater than left. Departure Communication (Admissions) Time/Spoke to Admitting Phy: 23:30 Impression Primary Impression: Pneumonia of both lower lobes Qualified Codes: J18.1 - Lobar pneumonia, unspecified organism Additional Impression: Volume overload Qualified Codes: E87.70 - Fluid overload, unspecified Disposition: ADMITTED INPATIENT Condition: Stable Admissions Decision to Admit Reason: Admit from ER (General) Decision to Admit/Date: Jan 13, 2018 Time/Decision to Admit Time: 23:30 Departure-Patient Inst. Referrals: ELIAS MO MD (PCP) Primary Care Physician HELENA MA APRN (Family) Primary Care Physician BUDDY MOROCHO MD Jan 13, 2018 21:41
[2018-01-13 21:43] LABS: BASOPHILS % (AUTO) 0 % (0-10); EOSINOPHILS # (AUTO) 0.4 10^3/uL (0.0-0.3); EOSINOPHILS % (AUTO) 4 % (0-10); HEMATOCRIT 29 % (35-52); LYMPHOCYTES # (AUTO) 0.9 X 10^3 (1.0-4.0); LYMPHOCYTES % (AUTO) 10 % (12-44); MEAN CORPUSCULAR HGB CONC 32 G/DL (32-36); MEAN CORPUSCULAR VOLUME 90 FL (80-99); MEAN PLATELET VOLUME 9.3 FL (7.4-10.4); MONOCYTES # (AUTO) 0.5 X 10^3 (0.0-1.0); MONOCYTES % (AUTO) 6 % (0-12); NEUTROPHILS # (AUTO) 7.5 X 10^3 (1.8-7.8); NEUTROPHILS % (AUTO) 80 % (42-75); PLATELET COUNT 306 10^3/uL (130-400); RED BLOOD COUNT 3.16 10^6/uL (4.35-5.85); RED CELL DISTRIBUTION WIDTH 15.5 % (10.0-14.5); WHITE BLOOD COUNT 9.4 10^3/uL (4.3-11.0)
[2018-01-13 21:44] LABS: MEAN CORPUSCULAR HEMOGLOBIN 28 PG (25-34)
[2018-01-13 21:46] LABS: BACTERIA,URINE TRACE /HPF; SQUAMOUS EPITHELIAL CELL,UR 0-5 /HPF
[2018-01-13 22:00] LABS: INR 1.2 (0.8-1.4)
[2018-01-13 22:03] LABS: ALANINE AMINOTRANSFERASE 27 U/L (0-55); ALBUMIN 3.9 GM/DL (3.2-4.5); ALKALINE PHOSPHATASE 82 U/L (40-136); BILIRUBIN,TOTAL 0.5 MG/DL (0.1-1.0); BUN/CREATININE RATIO 13; CALCIUM 9.5 MG/DL (8.5-10.1); CARBON DIOXIDE 21 MMOL/L (21-32); CHLORIDE 100 MMOL/L (98-107); CREATININE SERUM 3.12 MG/DL (0.60-1.30); GFR ESTIMATED 16; GLUCOSE 113 MG/DL (70-105); MAGNESIUM 2.5 MG/DL (1.8-2.4); POTASSIUM 4.2 MMOL/L (3.6-5.0); SODIUM 135 MMOL/L (135-145); TOTAL PROTEIN 7.6 GM/DL (6.4-8.2)
[2018-01-13 22:51] LABS: ABG BASE EXCESS -0.7 MMOL/L (-2.5-2.5); ABG OXYGEN SATURATION 96 % (94-100); ABG PCO2 42 MMHG (35-45); ABG PH 7.38 (7.37-7.43); ABG PO2 85 MMHG (79-93); ABG TCO2 24.8 MMOL/L (21.0-31.0)
[2018-01-13 22:52] LABS: ALLENS TEST YES-POS; INSPIRED O2 3L; PATIENT TEMP 100.1; VENTILATOR NO
[2018-01-13] MEDS ORDERED: cefTRIAXone FOR IV USE 1,000 MG in NS (IVPB) 50 ML IV ONE (23:30)
[2018-01-13] MEDS ORDERED: FUROSEMIDE 40 MG/4 ML INJ (LASIX) IV STA (23:42)
[2018-01-14] VITALS (7 sets, daily range): BP systolic 108–171; BP diastolic 58–86
[2018-01-14] MEDS ORDERED: RT-ALBUTEROL SULF 2.5 MG/3 ML PRE-MIX VIAL INH PRN (03:00)
[2018-01-14] MEDS ORDERED: ACETAMINOPHEN 500 MG TAB (TYLENOL) ONE (04:29)
[2018-01-14 06:53] LABS: BASOPHILS % (AUTO) 0 % (0-10); EOSINOPHILS # (AUTO) 0.3 10^3/uL (0.0-0.3); EOSINOPHILS % (AUTO) 4 % (0-10); HEMATOCRIT 26 % (35-52); HEMOGLOBIN 8.3 G/DL (11.5-16.0); LYMPHOCYTES % (AUTO) 13 % (12-44); MEAN CORPUSCULAR HEMOGLOBIN 29 PG (25-34); MEAN CORPUSCULAR HGB CONC 32 G/DL (32-36); MEAN CORPUSCULAR VOLUME 90 FL (80-99); MEAN PLATELET VOLUME 9.1 FL (7.4-10.4); MONOCYTES # (AUTO) 0.5 X 10^3 (0.0-1.0); MONOCYTES % (AUTO) 6 % (0-12); NEUTROPHILS # (AUTO) 5.9 X 10^3 (1.8-7.8); NEUTROPHILS % (AUTO) 76 % (42-75); PLATELET COUNT 266 10^3/uL (130-400); RED CELL DISTRIBUTION WIDTH 15.6 % (10.0-14.5); WHITE BLOOD COUNT 7.7 10^3/uL (4.3-11.0)
[2018-01-14 07:15] LABS: ALBUMIN 3.5 GM/DL (3.2-4.5); BILIRUBIN,TOTAL 0.4 MG/DL (0.1-1.0); CALCIUM 9.2 MG/DL (8.5-10.1); CREATININE SERUM 3.06 MG/DL (0.60-1.30); POTASSIUM 3.2 MMOL/L (3.6-5.0); TOTAL PROTEIN 6.8 GM/DL (6.4-8.2)
--- NOTE | 2018-01-14 07:22 | Diagnostic Imaging Report ---
INDICATION: Weakness, back and chest pain. COMPARISON: 01/02/2018. FINDINGS: Single view of the chest demonstrates cardiac enlargement with mild central vascular congestion. This is improved compared to prior exam. There is no pneumothorax or effusion. Osseous structures are normal. IMPRESSION: Cardiac enlargement with persistent but decreased central vascular congestion. Dictated by: Dictated on workstation # [id number]
--- NOTE | 2018-01-14 08:04 | Consultation-Cardiology ---
HPI-Cardiology Cardiology Consultation Date of Consultation 01/14/18 Date of Admission Time Seen by Provider: 07:55 Indication: Coronary artery disease HPI 52 years old lady with history of COPD, coronary artery disease and hypertension in addition to chronic renal insufficiency. Was having increasing shortness of breath over the past week and was admitted last week for acute respiratory failure, was on BiPAP, stress test was abnormal and had a cardiac catheterization then underwent complex intervention with stenting of the LAD, reported improvement in her symptoms initially, she started complaining of generalized weakness, loss of energy and having fever. Had mild groin discomfort. She admitted having occasional chest tightness. No palpitation. Came into the emergency room and was admitted for observation. Workup was negative except for temperature 102 Home Medications & Allergies Allergies: Coded Allergies: Penicillins (Unverified Allergy, Severe, 01/13/18) levofloxacin (Unverified Allergy, Unknown, 01/13/18) nalbuphine (Unverified Allergy, Unknown, 01/13/18) pregabalin (Unverified Allergy, Unknown, 01/13/18) Home Medication List Reviewed: Yes MDV-Bywjep-Czuwar Hx Patient Social History Marital Status: Alcohol Use: Denies Use Recreational Drug Use: No Smoking Status: Former Smoker Type Used: Cigarettes Recent Foreign Travel: No Recent Infectious Disease Expo: No Recent Hopitalizations: Yes (1 week ago) Physical Abuse Screen: No Sexual Abuse: No Immunizations Up To Date Date of Pneumonia Vaccine: Dec 07, 2016 Past Medical History Past medical history as described below Family Medical History Family History: AIDS G8 BROTHER Alcoholism 19 FATHER Arthritis 19 MOTHER Cardiovascular disease 19 MOTHER Cataracts 19 MOTHER Diabetes mellitus 19 MOTHER Hypercholesterolemia 19 MOTHER Hypertension 19 MOTHER G8 BROTHER Neoplasm MATERNAL GRANDMOTHER (OVARIAN CANCER) MATERNAL AUNT (OVARIAN CANCER) Osteoporosis 19 MOTHER Review of Systems Constitutional: see HPI, fever, malaise, weakness EENTM: see HPI, no symptoms reported Respiratory: see HPI, dyspnea on exertion, phlegm, short of breath Cardiovascular: see HPI, chest pain, edema Gastrointestinal: no symptoms reported, see HPI Genitourinary: no symptoms reported, see HPI Musculoskeletal: no symptoms reported, see HPI Skin: no symptoms reported, see HPI Psychiatric/Neurological: No Symptoms Reported, See HPI Reviewed Test Results Reviewed Test Results Lab Laboratory Tests Test 01/13/18 20:50 01/13/18 21:36 01/13/18 22:06 01/13/18 22:43 Range/Units Urine Color YELLOW Urine Clarity CLEAR Urine pH 5 5-9 Urine Specific [place] 1.010 L 1.016-1.022 Urine Protein NEGATIVE NEGATIVE Urine Glucose (UA) NEGATIVE NEGATIVE Urine Ketones NEGATIVE NEGATIVE Urine Nitrite NEGATIVE NEGATIVE Urine Bilirubin NEGATIVE NEGATIVE Urine Urobilinogen NORMAL NORMAL MG/DL Urine Leukocyte Esterase 1+ H NEGATIVE Urine RBC (Auto) 2+ H NEGATIVE Urine RBC 2-5 H /HPF Urine WBC 2-5 /HPF Urine Squamous Epithelial Cells 0-5 /HPF Urine Crystals NONE /LPF Urine Bacteria TRACE /HPF Urine Casts NONE /LPF Urine Mucus NEGATIVE /LPF Urine Culture Indicated NO White Blood Count 9.4 4.3-11.0 10^3/uL Red Blood Count 3.16 L 4.35-5.85 10^6/uL Hemoglobin 9.0 L 11.5-16.0 G/DL Hematocrit 29 L 35-52 % Mean Corpuscular Volume 90 80-99 FL Mean Corpuscular Hemoglobin 28 25-34 PG Mean Corpuscular Hemoglobin Concent 32 32-36 G/DL Red Cell Distribution Width 15.5 H 10.0-14.5 % Platelet Count 306 130-400 10^3/uL Mean Platelet Volume 9.3 7.4-10.4 FL Neutrophils (%) (Auto) 80 H 42-75 % Lymphocytes (%) (Auto) 10 L 12-44 % Monocytes (%) (Auto) 6 0-12 % Eosinophils (%) (Auto) 4 0-10 % Basophils (%) (Auto) 0 0-10 % Neutrophils # (Auto) 7.5 1.8-7.8 X 10^3 Lymphocytes # (Auto) 0.9 L 1.0-4.0 X 10^3 Monocytes # (Auto) 0.5 0.0-1.0 X 10^3 Eosinophils # (Auto) 0.4 H 0.0-0.3 10^3/uL Basophils # (Auto) 0.0 0.0-0.1 10^3/uL Prothrombin Time 15.0 H 12.2-14.7 SEC INR Comment 1.2 0.8-1.4 Activated Partial Thromboplast Time 34 24-35 SEC Sodium Level 135 135-145 MMOL/L Potassium Level 4.2 3.6-5.0 MMOL/L Chloride Level 100 98-107 MMOL/L Carbon Dioxide Level 21 21-32 MMOL/L Anion Gap 14 5-14 MMOL/L Blood Urea Nitrogen 41 H 7-18 MG/DL Creatinine 3.12 H 0.60-1.30 MG/DL Estimat Glomerular Filtration Rate 16 BUN/Creatinine Ratio 13 Glucose Level 113 H 70-105 MG/DL Calcium Level 9.5 8.5-10.1 MG/DL Corrected Calcium 9.6 8.5-10.1 MG/DL Magnesium Level 2.5 H 1.8-2.4 MG/DL Total Bilirubin 0.5 0.1-1.0 MG/DL Aspartate Amino Transf (AST/SGOT) 31 5-34 U/L Alanine Aminotransferase (ALT/SGPT) 27 0-55 U/L Alkaline Phosphatase 82 40-136 U/L Troponin I < 0.30 <0.30 NG/ML C-Reactive Protein High Sensitivity 7.32 H 0.00-0.50 MG/DL B-Type Natriuretic Peptide 301.4 H <100.0 PG/ML Total Protein 7.6 6.4-8.2 GM/DL Albumin 3.9 3.2-4.5 GM/DL Lactic Acid Level 0.91 0.50-2.00 MMOL/L Blood Gas Puncture Site LEFT RADIAL Blood Gas Patient Temperature 100.1 Arterial Blood pH 7.38 7.37-7.43 Arterial Blood Partial Pressure CO2 42 35-45 MMHG Arterial Blood Partial Pressure O2 85 79-93 MMHG Arterial Blood HCO3 24 23-27 MMOL/L Arterial Blood Total CO2 24.8 21.0-31.0 MMOL/L Arterial Blood Oxygen Saturation 96 94-100 % Arterial Blood Base Excess -0.7 -2.5-2.5 MMOL/L Jerod Test YES-POS Blood Gas Ventilator Setting NO Blood Gas Inspired Oxygen 3L Test 01/14/18 06:27 Range/Units White Blood Count 7.7 4.3-11.0 10^3/uL Red Blood Count 2.90 L 4.35-5.85 10^6/uL Hemoglobin 8.3 L 11.5-16.0 G/DL Hematocrit 26 L 35-52 % Mean Corpuscular Volume 90 80-99 FL Mean Corpuscular Hemoglobin 29 25-34 PG Mean Corpuscular Hemoglobin Concent 32 32-36 G/DL Red Cell Distribution Width 15.6 H 10.0-14.5 % Platelet Count 266 130-400 10^3/uL Mean Platelet Volume 9.1 7.4-10.4 FL Neutrophils (%) (Auto) 76 H 42-75 % Lymphocytes (%) (Auto) 13 12-44 % Monocytes (%) (Auto) 6 0-12 % Eosinophils (%) (Auto) 4 0-10 % Basophils (%) (Auto) 0 0-10 % Neutrophils # (Auto) 5.9 1.8-7.8 X 10^3 Lymphocytes # (Auto) 1.0 1.0-4.0 X 10^3 Monocytes # (Auto) 0.5 0.0-1.0 X 10^3 Eosinophils # (Auto) 0.3 0.0-0.3 10^3/uL Basophils # (Auto) 0.0 0.0-0.1 10^3/uL Sodium Level 135 135-145 MMOL/L Potassium Level 3.2 L 3.6-5.0 MMOL/L Chloride Level 99 98-107 MMOL/L Carbon Dioxide Level 23 21-32 MMOL/L Anion Gap 13 5-14 MMOL/L Blood Urea Nitrogen 39 H 7-18 MG/DL Creatinine 3.06 H 0.60-1.30 MG/DL Estimat Glomerular Filtration Rate 16 BUN/Creatinine Ratio 13 Glucose Level 145 H 70-105 MG/DL Calcium Level 9.2 8.5-10.1 MG/DL Corrected Calcium 9.6 8.5-10.1 MG/DL Total Bilirubin 0.4 0.1-1.0 MG/DL Aspartate Amino Transf (AST/SGOT) 22 5-34 U/L Alanine Aminotransferase (ALT/SGPT) 20 0-55 U/L Alkaline Phosphatase 69 40-136 U/L Total Protein 6.8 6.4-8.2 GM/DL Albumin 3.5 3.2-4.5 GM/DL Physical Exam Vital Signs Vital Signs - First Documented Capillary Refill : Less Than 3 Seconds Height, Weight, BMI Height: 5'4.00" Weight: 216lbs. 3.0oz. 98.460111xj; 37.3 BMI Method:Stated General Appearance: WD/WN, Mild Distress Eyes: Bilateral Eye Normal Inspection, Bilateral Eye PERRL, Bilateral Eye EOMI HEENT: PERRL/EOMI, TMs Normal, Normal ENT Inspection, Pharynx Normal Neck: Full Range of Motion, Normal Inspection, Non Tender, Supple, Carotid Bruit Respiratory: Chest Non Tender, Lungs Clear, Normal Breath Sounds, No Accessory Muscle Use, No Respiratory Distress Cardiovascular: Regular Rate, Rhythm, No Edema, No Gallop, No JVD, Normal Peripheral Pulses, Systolic Murmur Gastrointestinal: Normal Bowel Sounds, No Organomegaly, No Pulsatile Mass, Non Tender, Soft Back: Normal Inspection, No CVA Tenderness, No Vertebral Tenderness Extremity: Normal Capillary Refill, Normal Inspection, Normal Range of Motion, Non Tender, No Calf Tenderness, No Pedal Edema Neurologic/Psychiatric: Alert, Oriented x3, No Motor/Sensory Deficits, Normal Mood/Affect Skin: Normal Color, Warm/Dry Lymphatic: No Adenopathy A/P-Cardiology Admission Diagnosis Shortness of breath Chest pain Coronary artery disease Acute renal failure Assessment/Plan Fever of unknown origin, no leukocytosis. Has underlying COPD. I will repeat chest x-ray PA and lateral, blood cultures were done, awaiting results. Was not initiated on antibiotics. Acute on chronic renal insufficiency, contrast nephropathy. Patient was educated on increasing fluid intake on discharge. She expressed that she has forgot to drink large amount of fluid. I will start her on IV fluid, discontinue losartan, cannot use CALLIE inhibitor and/or ARB due to renal failure and monitor renal function closely. Right groin discomfort and the lump in the groin, I will evaluate ultrasound Status post recent respiratory failure secondary to exacerbation of COPD. Continue to monitor Chest pain, reporting improvement, still having mild chest pain on and off. Coronary artery disease status post cardiac catheterization done in December 2017 showing severe proximal and mid LAD with complex intervention with the use of IVUS in LAD and deployment of 2 overlapping stent Xience Raquel 2.7515 mm and 2.7518 mm extended proximally to 3.5 mm and distally to 3.0 mm, at the overlap area the stents were expanded to 3.1 mm, mild disease in the circumflex and distal LAD and right coronary artery. Continue to monitor EKG. Hypertension, continue on IV fluid, monitor at this time Hyperlipidemia, continue on statin and fish oil and monitor History of tobaccoism in the remote past, has stopped smoking 6 years ago. Obesity, discussed weight loss and exercise PAULA GÓMEZ MD Jan 14, 2018 08:03
[2018-01-14] MEDS: RT-ALBUTEROL SULF 2.5 MG/3 ML PRE-MIX VIAL INH SCH ×5 (08:12→21:24)
[2018-01-14] MEDS: OMEGA 3 (FISH OIL) 1000 MG CAP PO SCH ×2 (08:20→17:19)
[2018-01-14] MEDS: ASPIRIN E.C. 81 MG (ECOTRIN) TAB PO SCH (09:38)
[2018-01-14] MEDS: TICAGRELOR 90 MG TABLET (BRILINTA) PO SCH ×2 (09:38→20:58)
[2018-01-14] MEDS: FAMOTIDINE 20 MG (PEPCID) TABLET PO SCH (09:38)
[2018-01-14] MEDS: CARVEDILOL 12.5 MG (COREG) TABLET PO SCH ×2 (09:38→20:58)
[2018-01-14] MEDS: NS IV 1000 ML 1,000 ML IV SCH ×2 (09:40→20:00)
--- NOTE | 2018-01-14 09:46 | Diagnostic Imaging Report ---
Indication: Dyspnea and pneumonia PA and lateral views of the chest are obtained. Comparison is made to study of 01/13/2018. Heart size and pulmonary vascularity are at the upper limits of normal. There is mild increased density in the parahilar regions. No pneumothorax is seen. There is no significant pleural fluid. Impression: Heart size and pulmonary vascularity are at the upper limits of normal. There may be slight parahilar edema and/or pneumonitis without consolidation or other acute abnormality identified. Dictated by: Dictated on workstation # [id number]
--- NOTE | 2018-01-14 11:24 | Diagnostic Imaging Report ---
INDICATION: Right groin pain, recent heart catheter COMPARISON: None. FINDINGS: The visualized right common femoral artery and vein are normal. There is a 2 cm hematoma in the subcutaneous tissues. No active flow is seen that would indicate a pseudoaneurysm. There is no AV fistula. IMPRESSION: No pseudoaneurysm identified. Dictated by: Dictated on workstation # [id number]
[2018-01-14] MEDS: morphine ER 30 MG (MS CONTIN) TAB PO SCH ×2 (11:36→20:58)
[2018-01-14] MEDS: cefTRIAXone FOR IV USE 1,000 MG in NS (IVPB) 50 ML IV SCH (12:19)
--- NOTE | 2018-01-14 13:17 | History & Physicial ([facility]) ---
GEETA RUSH MEDICAL STUDENT 01/14/18 1:17pm: HPI History of Present Illness: 52 yo white woman presented to ED last night with fever of 101.2F and jerking worsening over the last two days. Pt states taking tylenol at home helped her fever only a little. Pt also was having SOB, heaviness on her chest, and fatigue. ED worked her up for possible bilateral lower lobe pneumonia. Pt denies productive cough. Pt has had normal bowel movement and urination today. Pt states that she is in a lot of pain today because she normally takes Embeda 80mg bid and has not had her morning dose. She rates her back pain as an 8 out of 10 on the pain scale. She states that she also is experiencing pain today in her right inguinal region at the heart cath insertion site. Pt had a stress test and subsequent heart cath performed the Tuesday before with Dr. Krueger. She reports her LAD was 75% obstructed. Dr. Krueger ordered an ultrasound today to check the site on her right inguinal area. Source: patient Exam Limitations: no limitations Date seen by provider: Jan 14, 2018 Time Seen by Provider: 12:10 Attending Physician Indio Yu MD PCP Rita Romo MD Consult Date of Admission Jan 13, 2018 at 23:42 Home Medications Home Medications Reviewed patient Home Medication Reconciliation performed by pharmacy medication reconciliations traffic engineering technician and/or nursing. Patients Allergies have been reviewed. Allergies Coded Allergies: Penicillins (Unverified Allergy, Severe, 01/13/18) levofloxacin (Unverified Allergy, Unknown, 01/13/18) nalbuphine (Unverified Allergy, Unknown, 01/13/18) pregabalin (Unverified Allergy, Unknown, 01/13/18) [id number] Hx Patient Social History Marrital Status: Alcohol Use: Denies Use Recreational Drug Use: No Smoking Status: Former Smoker Type Used: Cigarettes Recent Foreign Travel: No Contact w/other who traveled: No Recent Hopitalizations: Yes (1 week ago for heart catheterization with Dr. Krueger) Recent Infectious Disease Expo: No Physical Abuse Screen: No Sexual Abuse: No Immunizations Up To Date Date of Pneumonia Vaccine: Dec 07, 2016 Past Medical History COPD----use 3L of oxygen at home Fibromyalgia Degenerative disk disease HTN Hyptothyroid Surgical: Hip replacement Tubal Ligation Knee scope Family Medical History Family History: AIDS G8 BROTHER Alcoholism 19 FATHER Arthritis 19 MOTHER Cardiovascular disease 19 MOTHER Cataracts 19 MOTHER Diabetes mellitus 19 MOTHER Hypercholesterolemia 19 MOTHER Hypertension 19 MOTHER G8 BROTHER Neoplasm MATERNAL GRANDMOTHER (OVARIAN CANCER) MATERNAL AUNT (OVARIAN CANCER) Osteoporosis 19 MOTHER Review of Systems ([facility]) Constitutional: no symptoms reported EENTM: no symptoms reported Respiratory: short of breath Cardiovascular: chest pain (heaviness) Gastrointestinal: no symptoms reported Genitourinary: no symptoms reported : No Musculoskeletal: back pain Skin: no symptoms reported Psychiatric/Neurological: No Symptoms Reported Reviewed Test Results Reviewed Test Results Lab Laboratory Tests Test 01/13/18 20:50 01/13/18 21:36 01/13/18 22:06 01/13/18 22:43 Range/Units Urine Color YELLOW Urine Clarity CLEAR Urine pH 5 5-9 Urine Specific [place] 1.010 L 1.016-1.022 Urine Protein NEGATIVE NEGATIVE Urine Glucose (UA) NEGATIVE NEGATIVE Urine Ketones NEGATIVE NEGATIVE Urine Nitrite NEGATIVE NEGATIVE Urine Bilirubin NEGATIVE NEGATIVE Urine Urobilinogen NORMAL NORMAL MG/DL Urine Leukocyte Esterase 1+ H NEGATIVE Urine RBC (Auto) 2+ H NEGATIVE Urine RBC 2-5 H /HPF Urine WBC 2-5 /HPF Urine Squamous Epithelial Cells 0-5 /HPF Urine Crystals NONE /LPF Urine Bacteria TRACE /HPF Urine Casts NONE /LPF Urine Mucus NEGATIVE /LPF Urine Culture Indicated NO White Blood Count 9.4 4.3-11.0 10^3/uL Red Blood Count 3.16 L 4.35-5.85 10^6/uL Hemoglobin 9.0 L 11.5-16.0 G/DL Hematocrit 29 L 35-52 % Mean Corpuscular Volume 90 80-99 FL Mean Corpuscular Hemoglobin 28 25-34 PG Mean Corpuscular Hemoglobin Concent 32 32-36 G/DL Red Cell Distribution Width 15.5 H 10.0-14.5 % Platelet Count 306 130-400 10^3/uL Mean Platelet Volume 9.3 7.4-10.4 FL Neutrophils (%) (Auto) 80 H 42-75 % Lymphocytes (%) (Auto) 10 L 12-44 % Monocytes (%) (Auto) 6 0-12 % Eosinophils (%) (Auto) 4 0-10 % Basophils (%) (Auto) 0 0-10 % Neutrophils # (Auto) 7.5 1.8-7.8 X 10^3 Lymphocytes # (Auto) 0.9 L 1.0-4.0 X 10^3 Monocytes # (Auto) 0.5 0.0-1.0 X 10^3 Eosinophils # (Auto) 0.4 H 0.0-0.3 10^3/uL Basophils # (Auto) 0.0 0.0-0.1 10^3/uL Prothrombin Time 15.0 H 12.2-14.7 SEC INR Comment 1.2 0.8-1.4 Activated Partial Thromboplast Time 34 24-35 SEC Sodium Level 135 135-145 MMOL/L Potassium Level 4.2 3.6-5.0 MMOL/L Chloride Level 100 98-107 MMOL/L Carbon Dioxide Level 21 21-32 MMOL/L Anion Gap 14 5-14 MMOL/L Blood Urea Nitrogen 41 H 7-18 MG/DL Creatinine 3.12 H 0.60-1.30 MG/DL Estimat Glomerular Filtration Rate 16 BUN/Creatinine Ratio 13 Glucose Level 113 H 70-105 MG/DL Calcium Level 9.5 8.5-10.1 MG/DL Corrected Calcium 9.6 8.5-10.1 MG/DL Magnesium Level 2.5 H 1.8-2.4 MG/DL Total Bilirubin 0.5 0.1-1.0 MG/DL Aspartate Amino Transf (AST/SGOT) 31 5-34 U/L Alanine Aminotransferase (ALT/SGPT) 27 0-55 U/L Alkaline Phosphatase 82 40-136 U/L Troponin I < 0.30 <0.30 NG/ML C-Reactive Protein High Sensitivity 7.32 H 0.00-0.50 MG/DL B-Type Natriuretic Peptide 301.4 H <100.0 PG/ML Total Protein 7.6 6.4-8.2 GM/DL Albumin 3.9 3.2-4.5 GM/DL Lactic Acid Level 0.91 0.50-2.00 MMOL/L Blood Gas Puncture Site LEFT RADIAL Blood Gas Patient Temperature 100.1 Arterial Blood pH 7.38 7.37-7.43 Arterial Blood Partial Pressure CO2 42 35-45 MMHG Arterial Blood Partial Pressure O2 85 79-93 MMHG Arterial Blood HCO3 24 23-27 MMOL/L Arterial Blood Total CO2 24.8 21.0-31.0 MMOL/L Arterial Blood Oxygen Saturation 96 94-100 % Arterial Blood Base Excess -0.7 -2.5-2.5 MMOL/L Jerod Test YES-POS Blood Gas Ventilator Setting NO Blood Gas Inspired Oxygen 3L Test 01/14/18 06:27 Range/Units White Blood Count 7.7 4.3-11.0 10^3/uL Red Blood Count 2.90 L 4.35-5.85 10^6/uL Hemoglobin 8.3 L 11.5-16.0 G/DL Hematocrit 26 L 35-52 % Mean Corpuscular Volume 90 80-99 FL Mean Corpuscular Hemoglobin 29 25-34 PG Mean Corpuscular Hemoglobin Concent 32 32-36 G/DL Red Cell Distribution Width 15.6 H 10.0-14.5 % Platelet Count 266 130-400 10^3/uL Mean Platelet Volume 9.1 7.4-10.4 FL Neutrophils (%) (Auto) 76 H 42-75 % Lymphocytes (%) (Auto) 13 12-44 % Monocytes (%) (Auto) 6 0-12 % Eosinophils (%) (Auto) 4 0-10 % Basophils (%) (Auto) 0 0-10 % Neutrophils # (Auto) 5.9 1.8-7.8 X 10^3 Lymphocytes # (Auto) 1.0 1.0-4.0 X 10^3 Monocytes # (Auto) 0.5 0.0-1.0 X 10^3 Eosinophils # (Auto) 0.3 0.0-0.3 10^3/uL Basophils # (Auto) 0.0 0.0-0.1 10^3/uL Sodium Level 135 135-145 MMOL/L Potassium Level 3.2 L 3.6-5.0 MMOL/L Chloride Level 99 98-107 MMOL/L Carbon Dioxide Level 23 21-32 MMOL/L Anion Gap 13 5-14 MMOL/L Blood Urea Nitrogen 39 H 7-18 MG/DL Creatinine 3.06 H 0.60-1.30 MG/DL Estimat Glomerular Filtration Rate 16 BUN/Creatinine Ratio 13 Glucose Level 145 H 70-105 MG/DL Calcium Level 9.2 8.5-10.1 MG/DL Corrected Calcium 9.6 8.5-10.1 MG/DL Total Bilirubin 0.4 0.1-1.0 MG/DL Aspartate Amino Transf (AST/SGOT) 22 5-34 U/L Alanine Aminotransferase (ALT/SGPT) 20 0-55 U/L Alkaline Phosphatase 69 40-136 U/L Total Protein 6.8 6.4-8.2 GM/DL Albumin 3.5 3.2-4.5 GM/DL Radiology Chest Xray showed increased density at the parahilar regions. Xray is not very significant for lower lobe pneumonia. Physical Exam-([facility]) Physical Exam Vital Signs VS - Last 72 Hours, by Label 01/13/18 01/13/18 01/13/18 01/13/18 20:46 20:46 20:46 20:46 Temp 102.0 102.0 102.0 Pulse 100 100 100 Resp 16 16 16 B/P (MAP) 158/78 (104) 158/78 158/78 (104) Pulse Ox 95 95 95 95 O2 Delivery Nasal Cannula Nasal Cannula Nasal Cannula O2 Flow Rate 3.00 3.00 3.00 3.00 3.00 01/14/18 01/14/18 01/14/18 01/14/18 00:58 01:05 02:49 04:00 Temp 98.5 97.7 Pulse 79 82 79 73 Resp 20 22 20 B/P (MAP) 108/75 123/74 (90) 123/58 (79) Pulse Ox 95 93 95 99 O2 Delivery Room Air Nasal Cannula Nasal Cannula O2 Flow Rate 3.00 3.00 3.00 01/14/18 01/14/18 01/14/18 01/14/18 04:30 07:00 08:00 11:36 Temp 97.5 97.5 Pulse 80 74 86 Resp 18 B/P (MAP) 126/58 (80) Pulse Ox 94 O2 Delivery Nasal Cannula O2 Flow Rate 3.00 01/14/18 11:49 Pulse Ox 97 O2 Delivery Nasal Cannula O2 Flow Rate 3.00 Capillary Refill : Less Than 3 Seconds Temperature (Fahrenheit): 97.5 General Appearance: no apparent distress Respiratory: lungs clear, no respiratory distress, no accessory muscle use (on nasal canula at 3L) Cardiovascular: regular rate, rhythm, no murmur Gastrointestinal: normal bowel sounds, non tender Lymphatic: no adenopathy (of right inguinal node. Small knot noted in right inguinal region at cath insertion site) Assessment/Plan Assessment/Plan Admission Dx Bilateral Lower Lobe Pneumonia Admission Status: Inpatient Order (span 2 midnights) Reason for Inpatient Admission: Bilateral Lower Lobe Pneumonia Assessment & Plan 1. Lower Lobe Pneumonia Reassured pt that her Chest Xray looks pretty clear. Start Azithromycin and Rocephin IV. Continue gentle rehydration at 100ml/hr in order to balance fluid overload and fluid resuscitation. Advised that we will need to continue to monitor her temperature for another 24hr. 2. Anemia of Chronic Disease Pt's creatinine is very high, so she is likely anemic due to chronic kidney disease. Will order iron studies and observe. 3. Chronic Pain Prescribed 60mg morphine this morning and pt is still alert. Will increase her evening dose to 80mg morphine. Pt states she sees Samantha Avilez at [facility] and recently was increased to Embeda 80mg bid. INDIO YU MD 01/14/18 2:56pm: Home Medications Allergies Coded Allergies: Penicillins (Unverified Allergy, Severe, 01/13/18) levofloxacin (Unverified Allergy, Unknown, 01/13/18) nalbuphine (Unverified Allergy, Unknown, 01/13/18) pregabalin (Unverified Allergy, Unknown, 01/13/18) [id number] Hx Family Medical History Family History: AIDS G8 BROTHER Alcoholism 19 FATHER Arthritis 19 MOTHER Cardiovascular disease 19 MOTHER Cataracts 19 MOTHER Diabetes mellitus 19 MOTHER Hypercholesterolemia 19 MOTHER Hypertension 19 MOTHER G8 BROTHER Neoplasm MATERNAL GRANDMOTHER (OVARIAN CANCER) MATERNAL AUNT (OVARIAN CANCER) Osteoporosis 19 MOTHER Reviewed Test Results Reviewed Test Results Radiology CXR 01/14: Impression: Heart size and pulmonary vascularity are at the upper limits of normal. There may be slight parahilar edema and/or pneumonitis without consolidation or other acute abnormality identified. Physical Exam-([facility]) Physical Exam Lymphatic: no adenopathy (of right inguinal node. Small knot noted in right inguinal region at cath insertion site) Assessment/Plan Assessment/Plan (1) Sepsis Status: Acute Assessment & Plan: Met sepsis criteria on admission with fever, tachycardia and suspected pneumonia. Pneumonia dx unclear, however. No hypotension, lactic acidosis. Does have acute on chronic renal insufficiency which could be sign of end organ damage related to infection, but suspect more related to recent contrast for cardiac catheterization. Continue ceftriaxone and azithromycin. Qualifiers: Qualified Codes: A41.9 - Sepsis, unspecified organism (2) Fever Status: Acute Assessment & Plan: Unclear etiology, treating for possible pneumonia, but chest x-ray not convincing. Continue ceftriaxone, add azithromycin for CAP treatment. Qualifiers: Qualified Codes: R50.9 - Fever, unspecified (3) Normocytic anemia Status: Chronic Assessment & Plan: Suspect anemia of chronic disease given CKD, but studies not done yet per patient or chart review. Will check iron studies and peripheral smear. (4) Acute on chronic renal failure Status: Acute Assessment & Plan: Suspect contrast nephropathy, continue IVF, improved slightly this am. Baseline functioning unclear but creatinine has been around 1.7, labs only available for last 2 months and review of clinic chart shows no renal function testing in previous physician records from [id number], just established care at [facility] in November. Given lack of historical data, may need more work-up for her renal insufficiency. (5) COPD (chronic obstructive pulmonary disease) Status: Chronic Assessment & Plan: On baseline supplemental oxygen. Continue home inhalers. (6) Coronary artery disease Status: Chronic Assessment & Plan: Recent stenting, Dr. Krueger consulted, appreciate recommendations. Qualifiers: (7) Chronic pain Status: Chronic Assessment & Plan: Per patient, taking Embeda 80 mg twice daily, but med rec listed 80 in the am and 60 pm. Reviewed clinic chart, was seeing Dr. Romo and working on decreasing morphine dosage, at the end of November script was written for the lower dose. At her Jan 02 visit, she was sent to ER, unclear if dose adjustment made at that time. Will continue 80 mg am and 60 mg pm of morphine. Qualifiers: Qualified Codes: G89.4 - Chronic pain syndrome (8) Volume overload Status: Acute Assessment & Plan: Received one dose of furosemide in ER. Will be difficult to manage given her acute renal insufficiency, appreciate Cardiology recommendations. Qualifiers: Qualified Codes: E87.70 - Fluid overload, unspecified (9) DVT prophylaxis Status: Acute Assessment & Plan: Renally dosed enoxaparin Supervisory-Addendum Brief Supervisory Addendum Patient interviewed and examined by me today along with MS3 Geeta Rush, agree with documentation unless otherwise noted. See problem list for my assessment and plan. GEETA RUSH MEDICAL STUDENT Jan 14, 2018 1:17 pm INDIO YU MD Jan 14, 2018 2:56 pm
[2018-01-14] MEDS ORDERED: POTA10TA10 PO (14:49)
[2018-01-14] MEDS ORDERED: FURO20TA4 PO (14:49)
[2018-01-14] MEDS: ENOXAPARIN 30 MG/0.3 ML (LOVENOX) SYR SC SCH (17:19)
[2018-01-14] MEDS: ACETAMINOPHEN 500 MG TAB (TYLENOL) PO PRN (19:58)
[2018-01-14] MEDS ORDERED: ONDANSETRON 4 MG/2 ML (SDV) Z0FRAN IVP PRN (20:00)
[2018-01-14] MEDS: ROSUVASTATIN 5 MG (CRESTOR) TABLET PO SCH (20:58)
[2018-01-14] MEDS ORDERED: FUROSEMIDE 40 MG/4 ML INJ (LASIX) IVP ONE (21:00)
[2018-01-15] VITALS (7 sets, daily range): BP systolic 93–162; BP diastolic 50–83
[2018-01-15] MEDS: RT-ALBUTEROL SULF 2.5 MG/3 ML PRE-MIX VIAL INH SCH ×6 (01:44→21:05)
[2018-01-15] MEDS: ACETAMINOPHEN 500 MG TAB (TYLENOL) PO PRN (04:24)
[2018-01-15 05:35] LABS: ABSOLUTE RETIC # 35 10e9/L (24-90); BASOPHILS % (AUTO) 0 % (0-10); EOSINOPHILS # (AUTO) 0.3 10^3/uL (0.0-0.3); EOSINOPHILS % (AUTO) 3 % (0-10); HEMATOCRIT 28 % (35-52); HEMOGLOBIN 8.8 G/DL (11.5-16.0); LYMPHOCYTES # (AUTO) 1.3 X 10^3 (1.0-4.0); LYMPHOCYTES % (AUTO) 14 % (12-44); MEAN CORPUSCULAR HGB CONC 32 G/DL (32-36); MEAN CORPUSCULAR VOLUME 90 FL (80-99); MEAN PLATELET VOLUME 9.5 FL (7.4-10.4); MONOCYTES # (AUTO) 0.5 X 10^3 (0.0-1.0); MONOCYTES % (AUTO) 5 % (0-12); NEUTROPHILS # (AUTO) 7.7 X 10^3 (1.8-7.8); NEUTROPHILS % (AUTO) 78 % (42-75); PLATELET COUNT 272 10^3/uL (130-400); RED BLOOD COUNT 3.09 10^6/uL (4.35-5.85); RED CELL DISTRIBUTION WIDTH 15.1 % (10.0-14.5); RETICULOCYTE % 1.13 % (0.50-2.40); WHITE BLOOD COUNT 9.8 10^3/uL (4.3-11.0)
[2018-01-15 05:38] LABS: MEAN CORPUSCULAR HEMOGLOBIN 28 PG (25-34)
[2018-01-15 06:02] LABS: NEUTROPHILS % (MANUAL) 70 %
[2018-01-15 06:03] LABS: ANISOCYTOSIS SLIGHT; BAND NEUTROPHILS 7 %; EOSINOPHILS % (MANUAL) 8 %; LYMPHOCYTES % (MANUAL) 14 %; MONOCYTES % (MANUAL) 1 %; POLYCHROMASIA SLIGHT
[2018-01-15] MEDS: LEVOTHYROXINE 100 MCG (LEVOTHROID) TAB PO SCH (06:11)
[2018-01-15] MEDS: OMEGA 3 (FISH OIL) 1000 MG CAP PO SCH ×2 (06:11→16:37)
[2018-01-15] MEDS: NS IV 1000 ML 1,000 ML IV SCH ×3 (06:11→18:40)
[2018-01-15 07:49] LABS: ALBUMIN 3.4 GM/DL (3.2-4.5); BILIRUBIN,TOTAL 0.5 MG/DL (0.1-1.0); CALCIUM 8.9 MG/DL (8.5-10.1); CREATININE SERUM 2.34 MG/DL (0.60-1.30); POTASSIUM 3.4 MMOL/L (3.6-5.0); TOTAL PROTEIN 6.6 GM/DL (6.4-8.2)
--- NOTE | 2018-01-15 08:05 | Cardiology Progress Note ---
Subjective Date Seen by Provider: Jan 15, 2018 Time Seen by Provider: 08:02 Subjective/Events-last exam Patient is sitting in bed, feeling better, complaining of nosebleed. Denied any chest pain, still using oxygen. No further fever was noted over the past 24 hours. Review of Systems General: No Chills, No Night Sweats, No Fatigue, No Malaise, No Appetite, No Other HEENT: No Head Aches, No Visual Changes, No Eye Pain, No Ear Pain, No Dysphasia , No Sinus Congestion, No Post Nasal Drip, No Sore Throat, No Other Pulmonary: Dyspnea; No Cough, No Pleuritic Chest Pain, No Other Cardiovascular: No: Chest Pain, Palpitations, Orthopnea, Paroxysmal Noc. Dyspnea, Edema, Lt Headedness, Other Focused Exam Lactate Level 01/13/18 22:06: Lactic Acid Level 0.91 Objective-Cardiology Exam Last Set of Vital Signs Vital Signs 01/15/18 01/15/18 01/15/18 04:00 07:00 07:43 Temp 97.6 Pulse 80 Resp 20 B/P (MAP) 112/60 (77) Pulse Ox 98 O2 Delivery OxyMask O2 Flow Rate 4.00 Capillary Refill : Less Than 3 SecondsLess Than 3 Seconds I&O Intake and Output 01/15/18 00:00 Intake Total 3970 ml Output Total 4650 ml Balance -680 ml Intake Oral 3850 ml IV Total 120 ml Output Urine Total 4650 ml # Bowel Movements 1 Daily Weight Change No General: Alert, Oriented X3, Cooperative HEENT: Atraumatic, PERRLA Neck: Supple, No JVD, No Thyromegaly Lungs: Clear to Auscultation, Normal Air Movement Heart: Regular Rate, Normal S1, Normal S2, No Murmurs Abdomen: Normal Bowel Sounds, Soft, No Tenderness, No Hepatosplenomegaly, No Masses Extremities: No Clubbing, No Cyanosis, No Edema, Normal Pulses, No Tenderness/ Swelling Skin: No Rashes, No Breakdown, No Significant Lesion Neuro: Normal Gait, Normal Speech, Strength at 5/5 X4 Ext, Normal Tone, Sensation Intact Psych/Mental Status: Mental Status NL, Mood NL Results Lab Laboratory Tests 01/15/18 04:47 01/15/18 07:10 A/P-Cardiology Admission Diagnosis Shortness of breath Chest pain Coronary artery disease Acute renal failure Assessment/Plan Fever of unknown origin, no leukocytosis. Has underlying , receiving antibiotics empirically. Feeling better. Continue to monitor Acute on chronic renal insufficiency, contrast nephropathy and low fluid intake , improving after she was started on IV fluid. Continue to monitor. Right groin discomfort and the lump in the groin, ultrasound did not show any hematoma or pseudoaneurysm. Continue to monitor Status post recent respiratory failure secondary to exacerbation of , patient has advanced COPD, oxygen dependent. Chest pain, reporting improvement, still having mild chest pain on and off. No further episodes were reported during the hospital stay. Continue to monitor Coronary artery disease status post cardiac catheterization done in December 2017 showing severe proximal and mid LAD with complex intervention with the use of IVUS in LAD and deployment of 2 overlapping stent Xience Raquel 2.7515 mm and 2.7518 mm extended proximally to 3.5 mm and distally to 3.0 mm, at the overlap area the stents were expanded to 3.1 mm, mild disease in the circumflex and distal LAD and right coronary artery. Continue to monitor EKG. Hypertension, continue on IV fluid, monitor at this time Hyperlipidemia, continue on statin and fish oil and monitor History of tobaccoism in the remote past, has stopped smoking 6 years ago. Obesity, discussed weight loss and exercise PAULA GÓMEZ MD Jan 15, 2018 08:05
[2018-01-15] MEDS ORDERED: AZITHROMYCIN INJECTION 500 MG in NS (IVPB) 250 ML IV SCH (09:00)
[2018-01-15] MEDS ORDERED: NON-FORMULARY MEDICATION 1 EA EA (Umeclidinium Brm/Vilanterol Tr (Anoro Ellipta 62.5-25 Mc INH SCH (09:00)
[2018-01-15] MEDS ORDERED: morphine ER 15 MG (MS CONTIN) TAB PO SCH (09:00)
[2018-01-15] MEDS: ARIPIPRAZOLE 10 MG (ABILIFY) TAB PO SCH (09:31)
[2018-01-15] MEDS: morphine ER 30 MG (MS CONTIN) TAB PO SCH ×2 (09:32→21:50)
[2018-01-15] MEDS: FAMOTIDINE 20 MG (PEPCID) TABLET PO SCH (09:32)
[2018-01-15] MEDS: TICAGRELOR 90 MG TABLET (BRILINTA) PO SCH ×2 (09:32→21:50)
[2018-01-15] MEDS: CARVEDILOL 12.5 MG (COREG) TABLET PO SCH ×2 (09:33→21:50)
[2018-01-15] MEDS: ASPIRIN E.C. 81 MG (ECOTRIN) TAB PO SCH (09:33)
[2018-01-15] MEDS: cefTRIAXone FOR IV USE 1,000 MG in NS (IVPB) 50 ML IV SCH (12:18)
[2018-01-15] MEDS: ENOXAPARIN 30 MG/0.3 ML (LOVENOX) SYR SC SCH (16:38)
--- NOTE | 2018-01-15 16:40 | Progress Note (SOAP) ---
MURRAY TOLBERT MEDICAL STUDENT 01/15/18 1640: Subjective Subjective/Events-last exam Pt states she was having nose bleeds all night and spit up a large blood clot. The nurses had her using an Oxymask throughout the night, but she has now resumed using the nasal cannula. Pt is no longer having nose bleeds. Pt denies SOB today and still feels a slight heaviness on her chest. She states that she feels weak and light headed occasionally when standing up to use the restroom. Pt is urinating fine and had a bowel movement this morning. Pt is still in quite a bit of back pain from being in the hospital bed and having fibromyalgia. She rates this pain as a 7 out of 10 on the pain scale currently. Review of Systems Date Seen by Provider: Jan 15, 2018 Time Seen by Provider: 13:30 HEENT: Other (nosebleeds) Pulmonary: No Dyspnea, No Cough, No Pleuritic Chest Pain, No Other Cardiovascular: Lt Headedness; No: Chest Pain, Palpitations Gastrointestinal: No: Nausea, Vomiting, Abdominal Pain, Diarrhea, Constipation , Melena, Hematochezia, Other Musculoskeletal: back pain Focused Exam Lactate Level 01/13/18 22:06: Lactic Acid Level 0.91 Respiratory: Lungs Clear, Normal Breath Sounds, No Respiratory Distress Cardiovascular: Regular Rate, Rhythm, No Gallop, No Murmur Skin: normal color Objective Exam Last Set of Vital Signs Vital Signs Date Time Temp Pulse Resp B/P (MAP) Pulse Ox O2 Delivery O2 Flow Rate FiO2 01/15/18 15:35 97.6 75 20 144/70 (94) 99 Nasal Cannula 3.00 Capillary Refill : Less Than 3 SecondsLess Than 3 Seconds I&O Intake and Output 01/15/18 00:00 Intake Total 3970 ml Output Total 4650 ml Balance -680 ml Intake Oral 3850 ml IV Total 120 ml Output Urine Total 4650 ml # Bowel Movements 1 Daily Weight Change No General: Alert, Oriented X3, No Acute Distress Lungs: Clear to Auscultation Heart: Regular Rate, No Murmurs Abdomen: Normal Bowel Sounds Results/Procedures Lab Laboratory Tests 01/15/18 04:47: White Blood Count 9.8, Red Blood Count 3.09L, Hemoglobin 8.8L, Hematocrit 28L, Mean Corpuscular Volume 90, Mean Corpuscular Hemoglobin 28, Mean Corpuscular Hemoglobin Concent 32, Red Cell Distribution Width 15.1H, Platelet Count 272, Mean Platelet Volume 9.5, Neutrophils (%) (Auto) 78H, Lymphocytes (%) (Auto) 14 , Monocytes (%) (Auto) 5, Eosinophils (%) (Auto) 3, Basophils (%) (Auto) 0, Neutrophils # (Auto) 7.7, Lymphocytes # (Auto) 1.3, Monocytes # (Auto) 0.5, Eosinophils # (Auto) 0.3, Basophils # (Auto) 0.0, Neutrophils % (Manual) 70, Lymphocytes % (Manual) 14, Monocytes % (Manual) 1, Eosinophils % (Manual) 8, Band Neutrophils 7, Polychromasia SLIGHT, Anisocytosis SLIGHT, Absolute Reticulocyte Count 35, Percent Reticulocyte Count 1.13 01/15/18 07:10: Sodium Level 138, Potassium Level 3.4L, Chloride Level 102, Carbon Dioxide Level 21, Anion Gap 15H, Blood Urea Nitrogen 32H, Creatinine 2.34H, Estimat Glomerular Filtration Rate 22, BUN/Creatinine Ratio 14, Glucose Level 153H, Calcium Level 8.9, Corrected Calcium 9.4, Magnesium Level 2.0, Iron Level 25L, Total Iron Binding Capacity 321, Unsaturated Iron Binding Capacity 296, Transferrin % Saturation 8L, Total Bilirubin 0.5, Aspartate Amino Transf (AST/ SGOT) 16, Alanine Aminotransferase (ALT/SGPT) 22, Alkaline Phosphatase 73, Total Protein 6.6, Albumin 3.4 Microbiology 01/13/18 Blood Culture - Preliminary, Resulted No growth Radiology CXR 01/14: Impression: Heart size and pulmonary vascularity are at the upper limits of normal. There may be slight parahilar edema and/or pneumonitis without consolidation or other acute abnormality identified. Assessment/Plan Assessment/Plan Admission Dx Bilateral Lower Lobe Pneumonia Admission Status: Inpatient Order (span 2 midnights) Reason for Inpatient Admission: Bilateral Lower Lobe Pneumonia Assessment & Plan 1. Fever of Unknown Origin Informed pt that there was no growth on sputum culture, and that it is unlikely she has pneumonia. Advised her that she will continue her 7 day course of Azithromycin and Rocephin, as we are not sure as to whether her fever would have resolved on its own. 2. Acute on Chronic Renal Insufficiency d/t Contrast Nephropathy Advised pt that while her kidney function has improved since yesterday, it is still markedly high with a creatinine of 2.34. Pt has no previous kidney function work up from Panchal at [facility], so I can only see poor kidney function beginning in November. For this reason, I would like her to stay one more night and continue to receive fluids at 100ml/hr. Consider kidney ultrasound and kidney function work up for CKD, can be done outpatient. 3. Anemia of Chronic Disease Hemoglobin 8.8 today. Likely d/t CKD. Observe. INDIO YU MD 01/15/18 8319: Assessment/Plan Assessment/Plan (1) Fever Status: Resolved Assessment & Plan: Unclear etiology, but afebrile last 24 hours. Will complete course of abx for possible pneumonia. Qualifiers: Qualified Codes: R50.9 - Fever, unspecified (2) Sepsis Status: Resolved Qualifiers: Qualified Codes: A41.9 - Sepsis, unspecified organism (3) Hypothyroidism Status: Chronic Assessment & Plan: Resume home med (4) Normocytic anemia Status: Chronic Assessment & Plan: Suspect CKD related, although CKD may be newer than originally thought as noted. Iron studies pending. (5) Acute on chronic renal failure Status: Acute Assessment & Plan: Suspect contrast nephropathy, continue IVF, improved slightly this am. Baseline functioning unclear but creatinine has been around 1.7, labs only available for last 2 months and review of clinic chart shows no renal function testing in previous physician records from [id number], just established care at [facility] in November. Given lack of historical data, may need more work-up for her renal insufficiency. 01/15 markedly improved but still quite high, unclear baseline as noted above. Will do further work-up outpatient, continue IVF for tonight and anticipate d/c tomorrow. (6) COPD (chronic obstructive pulmonary disease) Status: Chronic (7) Coronary artery disease Status: Chronic Assessment & Plan: Appreciate Cardiology recommendations Qualifiers: (8) Nosebleed Status: Acute Assessment & Plan: Suspect related to recent start of anti-platelet and DVT ppx along with nasal cannula use. Will start nasal saline. (9) DVT prophylaxis Status: Acute Assessment & Plan: Enoxaparin Supervisory-Addendum Brief Supervisory Addendum Patient interviewed and examined by me along with MSJulián Tolbert today. Agree with documentation unless mine differs. See problem list for my assessment and plan. MURRAY TOLBERT STUDENT Jan 15, 2018 16:40 INDIO YU MD Jan 15, 2018 17:31
[2018-01-15] MEDS: ROSUVASTATIN 5 MG (CRESTOR) TABLET PO SCH (21:49)
[2018-01-16 00:18] VITALS: BP 142/79
[2018-01-16] MEDS: RT-ALBUTEROL SULF 2.5 MG/3 ML PRE-MIX VIAL INH SCH ×3 (01:35→10:38)
[2018-01-16 04:03] VITALS: BP 114/60
[2018-01-16] MEDS: NS IV 1000 ML 1,000 ML IV SCH (06:22)
[2018-01-16] MEDS: OMEGA 3 (FISH OIL) 1000 MG CAP PO SCH (06:22)
[2018-01-16] MEDS: LEVOTHYROXINE 100 MCG (LEVOTHROID) TAB PO SCH (06:22)
[2018-01-16] MEDS ORDERED: FUROSEMIDE 40 MG/4 ML INJ (LASIX) IVP ONE (06:45)
[2018-01-16 07:00] LABS: HEMOGLOBIN 8.2 G/DL (11.5-16.0); MEAN PLATELET VOLUME 9.3 FL (7.4-10.4); RED BLOOD COUNT 2.86 10^6/uL (4.35-5.85); RED CELL DISTRIBUTION WIDTH 14.9 % (10.0-14.5); WHITE BLOOD COUNT 10.9 10^3/uL (4.3-11.0)
[2018-01-16] MEDS ORDERED: NITROGLYCERIN 0.4 MG SL TABS BTL 25'S SL ONE (07:00)
[2018-01-16] MEDS ORDERED: NITROGLYCERIN 0.4 MG SL TABS BTL 25'S SL NR (07:07)
[2018-01-16 07:22] LABS: CALCIUM 9.4 MG/DL (8.5-10.1); CREATININE SERUM 1.87 MG/DL (0.60-1.30); POTASSIUM 3.6 MMOL/L (3.6-5.0)
[2018-01-16 08:00] VITALS: BP 177/92
[2018-01-16] MEDS: FAMOTIDINE 20 MG (PEPCID) TABLET PO SCH (08:19)
[2018-01-16] MEDS: ASPIRIN E.C. 81 MG (ECOTRIN) TAB PO SCH (08:20)
[2018-01-16] MEDS: morphine ER 30 MG (MS CONTIN) TAB PO SCH (08:20)
[2018-01-16] MEDS: ARIPIPRAZOLE 10 MG (ABILIFY) TAB PO SCH (08:20)
[2018-01-16] MEDS: CARVEDILOL 12.5 MG (COREG) TABLET PO SCH (08:20)
[2018-01-16] MEDS: TICAGRELOR 90 MG TABLET (BRILINTA) PO SCH (08:29)
[2018-01-16] MEDS ORDERED: AZITHROMYCIN 250 MG TAB (ZITHROMAX) PO SCH (09:00)
--- NOTE | 2018-01-16 09:14 | Cardiology Progress Note ---
Subjective Date Seen by Provider: Jan 16, 2018 Time Seen by Provider: 09:11 Subjective/Events-last exam Patient is sitting at bedside, had an episode of chest pain earlier this morning responded to sublingual nitroglycerin, still having some dyspnea, did not sleep well last night Review of Systems General: No Chills, No Night Sweats, No Fatigue, No Malaise, No Appetite, No Other HEENT: No Head Aches, No Visual Changes, No Eye Pain, No Ear Pain, No Dysphasia , No Sinus Congestion, No Post Nasal Drip, No Sore Throat, No Other Pulmonary: Dyspnea; No Cough, No Pleuritic Chest Pain, No Other Cardiovascular: Chest Pain; No: Palpitations, Orthopnea, Paroxysmal Noc. Dyspnea, Edema, Lt Headedness, Other Focused Exam Lactate Level 01/13/18 22:06: Lactic Acid Level 0.91 Objective-Cardiology Exam Last Set of Vital Signs Vital Signs 01/16/18 01/16/18 01/16/18 04:03 06:41 07:00 Temp 98.3 Pulse 81 Resp 17 B/P (MAP) 114/60 (78) Pulse Ox 96 O2 Delivery Nasal Cannula O2 Flow Rate 3.00 Capillary Refill : Less Than 3 SecondsLess Than 3 Seconds I&O Intake and Output 01/15/18 23:59 Intake Total 2620 ml Output Total 5600 ml Balance -2980 ml Intake Oral 2310 ml IV Total 310 ml Output Urine Total 5600 ml General: Alert, Oriented X3, No Acute Distress HEENT: Atraumatic, PERRLA Neck: Supple, No JVD, No Thyromegaly Lungs: Clear to Auscultation Heart: Regular Rate, Normal S1, Normal S2, No Murmurs Abdomen: Normal Bowel Sounds Extremities: No Clubbing, No Cyanosis, No Edema, Normal Pulses, No Tenderness/ Swelling Skin: No Rashes, No Breakdown, No Significant Lesion Neuro: Normal Gait, Normal Speech, Strength at 5/5 X4 Ext, Normal Tone, Sensation Intact Psych/Mental Status: Mental Status NL, Mood NL Results Lab Laboratory Tests 01/16/18 06:18 A/P-Cardiology Admission Diagnosis Shortness of breath Chest pain Coronary artery disease Acute renal failure Assessment/Plan Fever of unknown origin, no leukocytosis. Has been afebrile. No source of fever was noted receiving empiric antibiotics. Managed by primary care team Acute on chronic renal insufficiency, contrast nephropathy and low fluid intake , improving, back to baseline. Continue to monitor Right groin discomfort and the lump in the groin, ultrasound did not show any hematoma or pseudoaneurysm. Continue to monitor Status post recent respiratory failure secondary to exacerbation of , patient has advanced COPD, oxygen dependent. Chest pain, reporting improvement, still having mild chest pain on and off. Had an episode this morning responded to nitroglycerin, no EKG changes. Continue to monitor Coronary artery disease status post cardiac catheterization done in December 2017 showing severe proximal and mid LAD with complex intervention with the use of IVUS in LAD and deployment of 2 overlapping stent Xience Raquel 2.7515 mm and 2.7518 mm extended proximally to 3.5 mm and distally to 3.0 mm, at the overlap area the stents were expanded to 3.1 mm, mild disease in the circumflex and distal LAD and right coronary artery. Continue to monitor EKG. Hypertension, controlled at this time. Continue to monitor Hyperlipidemia, continue on statin and fish oil and monitor History of tobaccoism in the remote past, has stopped smoking 6 years ago. Obesity, discussed weight loss and exercise PAULA GÓMEZ MD Jan 16, 2018 09:13
[2018-01-16] MEDS ORDERED: SODI50SP2 NS (10:05)
[2018-01-16] MEDS ORDERED: AZIT250T12 PO (10:05)
[2018-01-16] MEDS ORDERED: MELA3TAB54 PO (10:05)
--- NOTE | 2018-01-16 10:08 | Discharge Instructions ---
Discharge [facility] Discharge Medications New, Converted or Re-Newed RX: Transmitted to Pharmacy New Medications: Melatonin (Melatin) 3 Mg Tablet 3 MG PO HS, #30 TAB 0 Refills Sodium Chloride ([place]) 50 Ml [place] 50 ML NS PRN PRN for DRY NOSE, #1 EA Azithromycin (Azithromycin) 250 Mg Tablet 250 MG PO DAILY for 3 Days, #3 TAB 0 Refills Continued Medications: Acetaminophen (Tylenol Extra Strength) 500 Mg Tablet 1000 MG PO Q6H PRN for PAIN-MILD, TAB Albuterol Sulfate (Ventolin Hfa) 18 Gm Hfa.aer.ad 2 PUFF INH QID PRN for SHORTNESS OF BREATH, INHALER Aripiprazole (Aripiprazole) 5 Mg Tablet 5 MG PO DAILY, TAB Aspirin (Aspirin EC) 81 Mg Tablet.dr 81 MG PO DAILY, #100 TAB 3 Refills Carvedilol (Carvedilol) 25 Mg Tablet 25 MG PO BID, TAB Furosemide (Furosemide) 20 Mg Tablet 20 MG PO DAILY, TAB Gabapentin (Gabapentin) 300 Mg Capsule 900 MG PO HS, CAP TAKES 3 (300MG) CAPSULES Levothyroxine Sodium (Levothyroxine Sodium) 100 Mcg Tablet 100 MCG PO DAILY, TAB Lidocaine (Lidocaine) 1 Each Adh..patch 1 PATCH TD DAILY, EA Losartan Potassium (Cozaar) 100 Mg Tablet 100 MG PO DAILY, TAB Morphine Sulfate/Naltrexone (Embeda ER 80-3.2 mg Capsule) 1 Each Cap.er.po 1 CAP PO DAILY, CAP Morphine Sulfate/Naltrexone (Embeda ER 30-1.2 mg Capsule) 1 Each Cap.er.po 2 CAP PO HS, CAP [place] 3 Polyunsat Fatty Acids (Fish Oil 1,000 mg Capsule) 1,000 Mg Cap 1000 MG PO BID WITH MEALS, #100 CAP 3 Refills Potassium Chloride (Potassium Chloride) 10 Meq Tablet.er 10 MEQ PO DAILY, TAB Ranitidine HCl (Ranitidine HCl) 300 Mg Tablet 300 MG PO BID, TAB Rosuvastatin Calcium (Rosuvastatin Calcium) 5 Mg Tablet 5 MG PO HS, #30 TAB 3 Refills Ticagrelor (Brilinta) 90 Mg Tablet 90 MG PO BID, #60 TAB 4 Refills Umeclidinium Brm/Vilanterol Tr (Anoro Ellipta 62.5-25 Mcg INH) 1 Each Blst.w.dev 1 PUFF INH DAILY, INHALER Discontinued Medications: Gabapentin (Gabapentin) 300 Mg Capsule 600 MG PO 1000, CAP TAKES 2 (300MG) CAPSULES Patient Instructions Goal/Follow Up Appt: Follow up with Samantha Avilez on 01/20 at 10:20 am. Patient Instructions: Talk to Samantha about doing further work-up for your possible chronic kidney disease including considering CT, particularly given the presence of microscopic blood in urine as well. Return to The Hospital For: Fever, inability to keep down medications or liquids. Activity & Diet Discharge Diet: Cardiac Diet Activity as Tolerated: Yes Copy Copies To 1: ANGELA Chávez BETHANY N MD Jan 16, 2018 10:08 am
--- NOTE | 2018-01-16 10:09 | Discharge Summary ---
Diagnosis/Chief Complaint Date of Admission Jan 13, 2018 at 11:42 pm Date of Discharge Jan 16, 2018 Admission Diagnosis Admission Diagnosis (1) Sepsis Qualifiers: Qualified Codes: A41.9 - Sepsis, unspecified organism (2) Fever Qualifiers: Qualified Codes: R50.9 - Fever, unspecified (3) Normocytic anemia (4) Acute on chronic renal failure (5) COPD (chronic obstructive pulmonary disease) (6) Coronary artery disease (7) Chronic pain (8) Volume overload Discharge Diagnosis (1) Fever Status: Resolved Assessment & Plan: Unclear etiology, but afebrile last 24 hours. Will complete course of abx for possible pneumonia. Qualifiers: Qualified Codes: R50.9 - Fever, unspecified (2) Sepsis Status: Resolved Qualifiers: Qualified Codes: A41.9 - Sepsis, unspecified organism (3) Hypothyroidism Status: Chronic Assessment & Plan: Resume home med (4) Normocytic anemia Status: Chronic Assessment & Plan: Suspect CKD related, although CKD may be newer than originally thought as noted. Iron studies showed low iron, normal TIBC and high ferritin, suspicious for anemia of chronic disease. (5) Acute on chronic renal failure Status: Acute Assessment & Plan: Suspect contrast nephropathy, continue IVF, improved slightly this am. Baseline functioning unclear but creatinine has been around 1.7, labs only available for last 2 months and review of clinic chart shows no renal function testing in previous physician records from [id number], just established care at [facility] in November. Given lack of historical data, may need more work-up for her renal insufficiency. 01/15 markedly improved but still quite high, unclear baseline as noted above. Will do further work-up outpatient, continue IVF for tonight and anticipate d/c tomorrow. 01/16- down to near her baseline since November, unknown prior baseline or work-up- given microscopic hematuria and suspected CKD, recommend outpatient further work -up including CT abd/pelvis to eval for renal mass or stones as well as consideration for SPEP/UPEP. UA with micro was otherwise unremarkable inpatient. If CT negative, would recommend Urology consult for cystoscopy due to microscopic hematuria and history of smoking. (6) COPD (chronic obstructive pulmonary disease) Status: Chronic -On baseline supplemental oxygen (7) Coronary artery disease Status: Chronic Assessment & Plan: Appreciate Cardiology recommendations, no changes made in regimen Qualifiers: (8) Nosebleed Status: Acute Assessment & Plan: Suspect related to recent start of anti-platelet and DVT ppx along with nasal cannula use. Will start nasal saline. Chief Complaint/HPI Chief Complaint/HPI 52 yo white woman presented to ED last night with fever of 101.2F and jerking worsening over the last two days. Pt states taking tylenol at home helped her fever only a little. Pt also was having SOB, heaviness on her chest, and fatigue. ED worked her up for possible bilateral lower lobe pneumonia. Pt denies productive cough. Pt has had normal bowel movement and urination today. Pt states that she is in a lot of pain today because she normally takes Embeda 80mg bid and has not had her morning dose. She rates her back pain as an 8 out of 10 on the pain scale. She states that she also is experiencing pain today in her right inguinal region at the heart cath insertion site. Pt had a stress test and subsequent heart cath performed the Tuesday before Labor Day with Dr. Krueger. She reports her LAD was 75% obstructed. Dr. Krueger ordered an ultrasound today to check the site on her right inguinal area. Discharge Summary-Simple/Stand Consultations Dr. Krueger (Cardiology) Discharge Physical Examination Allergies: Coded Allergies: Penicillins (Unverified Allergy, Severe, 01/13/18) levofloxacin (Unverified Allergy, Unknown, 01/13/18) nalbuphine (Unverified Allergy, Unknown, 01/13/18) pregabalin (Unverified Allergy, Unknown, 01/13/18) Vitals & I&Os Vital Sign - Last 12Hours Date Time Temp Pulse Resp B/P (MAP) Pulse Ox O2 Delivery O2 Flow Rate FiO2 01/16/18 07:00 81 01/16/18 06:41 96 Nasal Cannula 3.00 01/16/18 04:03 98.3 17 114/60 (78) Intake and Output 01/15/18 23:59 Intake Total 1670 ml Output Total 2000 ml Balance -330 ml General Appearance: Alert, No Acute Distress Respiratory: Clear to Auscultation, Normal Air Movement Cardiovascular: Regular Rate, No Murmurs Neuro: Normal Speech Psych/Mental Status: Mental Status NL Hospital Course See final discharge diagnosis. Labs Laboratory Tests Test 01/15/18 04:47 01/15/18 07:10 01/16/18 06:18 Range/Units White Blood Count 9.8 10.9 4.3-11.0 10^3/uL Red Blood Count 3.09 L 2.86 L 4.35-5.85 10^6/uL Hemoglobin 8.8 L 8.2 L 11.5-16.0 G/DL Hematocrit 28 L 26 L 35-52 % Mean Corpuscular Volume 90 91 80-99 FL Mean Corpuscular Hemoglobin 28 29 25-34 PG Mean Corpuscular Hemoglobin Concent 32 32 32-36 G/DL Red Cell Distribution Width 15.1 H 14.9 H 10.0-14.5 % Platelet Count 272 273 130-400 10^3/uL Mean Platelet Volume 9.5 9.3 7.4-10.4 FL Neutrophils (%) (Auto) 78 H 42-75 % Lymphocytes (%) (Auto) 14 12-44 % Monocytes (%) (Auto) 5 0-12 % Eosinophils (%) (Auto) 3 0-10 % Basophils (%) (Auto) 0 0-10 % Neutrophils # (Auto) 7.7 1.8-7.8 X 10^3 Lymphocytes # (Auto) 1.3 1.0-4.0 X 10^3 Monocytes # (Auto) 0.5 0.0-1.0 X 10^3 Eosinophils # (Auto) 0.3 0.0-0.3 10^3/uL Basophils # (Auto) 0.0 0.0-0.1 10^3/uL Neutrophils % (Manual) 70 % Lymphocytes % (Manual) 14 % Monocytes % (Manual) 1 % Eosinophils % (Manual) 8 % Band Neutrophils 7 % Polychromasia SLIGHT Anisocytosis SLIGHT Absolute Reticulocyte Count 35 24-90 10e9/L Percent Reticulocyte Count 1.13 0.50-2.40 % Sodium Level 138 139 135-145 MMOL/L Potassium Level 3.4 L 3.6 3.6-5.0 MMOL/L Chloride Level 102 106 98-107 MMOL/L Carbon Dioxide Level 21 23 21-32 MMOL/L Anion Gap 15 H 10 5-14 MMOL/L Blood Urea Nitrogen 32 H 21 H 7-18 MG/DL Creatinine 2.34 H 1.87 H 0.60-1.30 MG/DL Estimat Glomerular Filtration Rate 22 28 BUN/Creatinine Ratio 14 11 Glucose Level 153 H 122 H 70-105 MG/DL Calcium Level 8.9 9.4 8.5-10.1 MG/DL Corrected Calcium 9.4 8.5-10.1 MG/DL Magnesium Level 2.0 1.8-2.4 MG/DL Iron Level 25 L 35-180 ug/dL Total Iron Binding Capacity 321 280-380 ug/dL Unsaturated Iron Binding Capacity 296 55-450 ug/dL Transferrin % Saturation 8 L 15-50 % Ferritin 248.1 H 20.0-177.0 ng/mL Total Bilirubin 0.5 0.1-1.0 MG/DL Aspartate Amino Transf (AST/SGOT) 16 5-34 U/L Alanine Aminotransferase (ALT/SGPT) 22 0-55 U/L Alkaline Phosphatase 73 40-136 U/L Total Protein 6.6 6.4-8.2 GM/DL Albumin 3.4 3.2-4.5 GM/DL Radiology Reviewed CXR 01/14: Impression: Heart size and pulmonary vascularity are at the upper limits of normal. There may be slight parahilar edema and/or pneumonitis without consolidation or other acute abnormality identified. US groin 01/14: IMPRESSION: No pseudoaneurysm identified. Discharge Instructions to patient/family Please see electronic discharge instructions given to patient. Discharge Medications Reviewed and agree with Discharge Medication list on patient's Discharge Instruction sheet Copy Copies To 1: ANGELA Chávez BETHANY N MD Jan 16, 2018 10:09 am
[2018-01-16] MEDS: cefTRIAXone FOR IV USE 1,000 MG in NS (IVPB) 50 ML IV SCH (10:46)
[2018-01-16] MEDS ORDERED: ENOXAPARIN 40 MG/0.4 ML (LOVENOX) SYR SC SCH (16:00)
== END 2018-01-16 13:54 | disposition home or self-care (01) | DRG 871 ==
LOC: EDUNIT# 19:22 → ER 19:23 → 4TH 23:42
PROVIDERS: ADMIT Family Medicine; ATTEND Family Medicine
DX: A41.9 Sepsis, unspecified organism (principal); J18.9 Pneumonia, unspecified organism; D63.1 Anemia in chronic kidney disease; N17.9 Acute kidney failure, unspecified; N18.9 Chronic kidney disease, unspecified; J44.9 Chronic obstructive pulmonary disease, unspecified; I25.10 Atherosclerotic heart disease of native coronary artery without angina pectoris; G89.29 Other chronic pain; Z68.37 Body mass index [BMI] 37.0-37.9, adult; E87.70 Fluid overload, unspecified; E03.9 Hypothyroidism, unspecified; R31.29 Other microscopic hematuria; F32.9 Major depressive disorder, single episode, unspecified; R04.0 Epistaxis; N14.2 Nephropathy induced by unspecified drug, medicament or biological substance; T50.8X5A Adverse effect of diagnostic agents, initial encounter; E66.9 Obesity, unspecified; E78.5 Hyperlipidemia, unspecified; R22.2 Localized swelling, mass and lump, trunk; M79.7 Fibromyalgia; Z95.5 Presence of coronary angioplasty implant and graft; Z96.649 Presence of unspecified artificial hip joint; Z87.891 Personal history of nicotine dependence; Z79.02 Long term (current) use of antithrombotics/antiplatelets
CPT/HCPCS: 36415; 71045; 71046; 80048; 80053; 81000; 82728; 82805; 83540; 83605; 83735; 83880; 84484; 85007; 85025; 85027; 85045; 85610; 85730; 86141; 87040; 93005; 93041; 93926; 94640; 94664; 94760; 96365; 96375

== ENCOUNTER → 2018-06-21 | Outpatient (CLI) | payer MEDICARE ==
[~2018-06-21] VITALS: Ht 162.6 cm; Wt 110.7 kg
[~2018-06-21] MED LIST changes: +CATHETER FLUSH 10 ML SYR IV PRN; +MELA3TAB54 PO; +POTA10TA10 PO; +REGADENOSON 0.4 MG/5 ML SYR (LEXISCAN) IV ONE; +SODI50SP2 NS
[2018-06-21 09:34] VITALS: BP 132/73
--- NOTE | 2018-06-21 15:13 | STRESS TEST ---
DATE OF SERVICE: LEXISCAN MYOVIEW STRESS TEST REFERRING PHYSICIAN: Dr. Tim and Dr. Rita Romo, [facility]. Baseline heart rate is 89, baseline blood pressure 155/86. Baseline EKG is sinus rhythm with no ischemic changes. In summary, the patient was injected with 10.23 mCi of technetium-99 Myoview and the resting images were obtained. Then, the patient received 0.4 mg of Lexiscan, followed by 30.2 mCi of technetium-99 Myoview. Throughout the test, there were no EKG changes. The resting and stressed images were reviewed and compared in the short axis, horizontal long axis, and vertical long axis views. Review of the images showed decreased uptake involving the anterior wall, anterior apex, true apex and anterior septum with mild reversibility at the basal to mid anterior wall. SSS is 14, SDS 2, TID value is 1.05. On the gated images, the left ventricle appeared to be normal size with normal contractility. Calculated ejection fraction 75%. CONCLUSION: 1. The patient tolerated Lexiscan well. 2. Breast attenuation with fixed defect involving the true apex and anteroapical segment with mild ischemia involving the basal to mid anterior wall and anterior septum. 3. Normal left ventricular size, anterior wall is reece normally, calculated ejection fraction 75%. Job ID: [id number] DocumentID: [id number] Dictated Date: 06/21/2018 14:50:53 Shadowgraph Operator Date: 06/21/2018 15:13:10 Dictated By: PAULA GÓMEZ MD
== END ==
LOC: CARD 07:47
PROVIDERS: ATTEND Internal Medicine Cardiovascular Disease
DX: I25.10 Atherosclerotic heart disease of native coronary artery without angina pectoris (principal); I10 Essential (primary) hypertension; E78.2 Mixed hyperlipidemia; J44.9 Chronic obstructive pulmonary disease, unspecified; R06.09 Other forms of dyspnea
CPT/HCPCS: 78452; 93017